=== PATIENT | female | born 1945 | race Caucasian/White ===

== ENCOUNTER 2016-12-31 12:35 | Outpatient (CLI) | payer MEDICARE, OTHER | END 2016-12-31 12:36 | disposition home or self-care (01) | DX: M43.12 Spondylolisthesis, cervical region (principal); M40.292 Other kyphosis, cervical region; M54.12 Radiculopathy, cervical region ==

== ENCOUNTER 2017-02-13 12:50 | Outpatient (CLI) | payer MEDICARE, OTHER | END 2017-02-13 12:51 | disposition home or self-care (01) | DX: M85.88 Other specified disorders of bone density and structure, other site (principal) ==

== ENCOUNTER 2017-02-13 12:51 | Outpatient (CLI) | payer MEDICARE, OTHER | END 2017-02-13 12:52 | disposition home or self-care (01) | DX: Z13.6 Encounter for screening for cardiovascular disorders (principal); I10 Essential (primary) hypertension; M85.88 Other specified disorders of bone density and structure, other site ==

== ENCOUNTER 2018-12-17 13:18 | Emergency (ER) | payer MEDICARE, OTHER ==
--- NOTE | 2018-12-17 14:41 | XRAY Report ---
Reason: cough Procedure Date: 12/17/2018 Accession Number: [id number] / [id number] Procedure: XR - Chest 2 View X-Ray CPT Code: 62497 FULL RESULT: EXAM: CHEST RADIOGRAPHY EXAM DATE: 12/17/2018 02:31 PM. CLINICAL HISTORY: Cough. Short of breath. COMPARISON: CHEST 2 VIEW PA/LAT 05/04/2016 12:29 PM. TECHNIQUE: 2 views. FINDINGS: Lungs/Pleura: Hyperexpanded with flattened diaphragm and coarse lung markings typical for COPD. Increased patchy density in right apex. No consolidation, effusion, or pneumothorax. Mediastinum: Heart and mediastinal contours are unremarkable. Upper lobe vessels not distended. Other: Scoliosis, degenerative changes. IMPRESSION: Right upper lobe infiltrate in a patient with underlying chronic lung disease. Follow-up is recommended to confirm complete resolution. [facility]
[2018-12-17] MEDS ORDERED: DOXYCYCLINE 100 MG TABLET PO STA (16:21)
[2018-12-17] MEDS ORDERED: IPRATROPIUM/ALBUTEROL 3 ML NEB INH STA (16:21)
[2018-12-17] MEDS ORDERED: SODIUM CHLORIDE 0.9% 1,000 ML IV ONE (16:21)
[2018-12-17] MEDS ORDERED: methylPREDNISolone SUCCINATE 125 MG/2 ML VIAL IVP STA (16:21)
--- NOTE | 2018-12-17 16:23 | ED Physician Documentation ---
PD HPI URI - Stated complaint Stated Complaint: CONGESTION/COUGH - Chief complaint Chief Complaint: Resp - History obtained from History obtained from: Patient - History of Present Illness Timing - onset: Other (This is a 73-year-old woman with history of COPD on 2 L of home oxygen per minute who presents with 10 days of increased shortness of breath, cough productive of green sputum. She denies fevers, runny nose or sore throat. She is also noted occasional dark blood in her stools. Her last colonoscopy was 9 years ago. She denies abdominal pain or significant constipation with this. She has not been eating as much as normal over the last 4 days and has poor appetite.) Review of Systems Constitutional: reports: Fatigue. denies: Fever, Chills Cardiac: denies: Chest pain / pressure, Palpitations Respiratory: reports: Dyspnea, Cough Skin: denies: Rash, Lesions, Abrasion (s) Musculoskeletal: denies: Neck pain, Back pain PD PAST MEDICAL HISTORY - Past Medical History Cardiovascular: Hypertension : Renal insuffiency - Past Surgical History Past Surgical History: No - Present Medications Home Medications: Ambulatory Orders Medication Instructions Recorded Confirmed Acetaminophen with Codeine 1 each PO DAILY 01/13/14 02/19/15 [Tylenol with Codeine #3 Tablet] Ascorbic Acid [Vitamin C] 500 mg PO DAILY 01/13/14 02/19/15 Aspirin EC [Ecotrin] 325 mg PO DAILY 01/13/14 02/19/15 Atorvastatin Calcium [Lipitor] 20 mg PO DAILY 01/13/14 02/19/15 Cholecalciferol (Vitamin D3) 1,000 unit PO DAILY 01/13/14 02/19/15 [Vitamin D] Citalopram [CeleXA] 20 mg PO DAILY 01/13/14 02/19/15 Cyanocobalamin (Vitamin B-12) 1,000 mcg PO Q7D 01/13/14 02/19/15 [Vitamin B-12] Flaxseed Oil 1,000 mg PO DAILY 01/13/14 02/19/15 Fluticasone [Flonase] 1 sprays MIO DAILY 01/13/14 02/19/15 Fluticasone/Salmeterol 100/50 1 puffs INH BID 01/13/14 02/19/15 [Advair 100 Mcg/50 Mcg] Gabapentin [Neurontin] 300 mg PO BID 01/13/14 02/19/15 Levalbuterol [Xopenex] 1.25 mg INH DAILY 01/13/14 02/19/15 Montelukast Sodium [Singulair] 10 mg PO DAILY 01/13/14 02/19/15 NIFEdipine [Procardia Xl] 30 mg PO DAILY 01/13/14 02/19/15 [place]-3/Dha/Epa/Fish Oil [Fish Oil] 1,000 mg PO DAILY 01/13/14 02/19/15 Cyanocobalamin (Vitamin B-12) 1,000 mcg PO DAILY 02/19/15 02/19/15 [Vitamin B-12] Fluticasone 44 Mcg [Flovent] 2 puffs INH BID 02/19/15 02/19/15 Iron Polysaccharide Complex 150 mg PO DAILY 02/19/15 02/19/15 [Polysaccharide Iron 150] Potassium Chloride 10 meq PO DAILY 02/19/15 02/19/15 Doxycycline Hyclate 100 mg PO BID #20 capsule 12/17/18 guaiFENesin/CODEINE [Robitussin AC] 5 - 10 ml PO Q6H PRN #120 ml 12/17/18 predniSONE [Deltasone] 20 mg PO [id number] #21 tab 12/17/18 - Allergies Allergies/Adverse Reactions: Allergies Allergy/AdvReac Type Severity Reaction Status Date / Time No Known Drug Allergies Allergy Unverified 12/17/18 13:48 - Social History Does the pt smoke?: No Smoking Status: Never smoker PD ED PE NORMAL - Vitals Vital signs reviewed: Yes - General General: Alert and oriented X 3, No acute distress - HEENT HEENT: PERRL, EOMI - Neck Neck: Supple, no meningeal sign, No bony TTP - Cardiac Cardiac: RRR, No murmur - Respiratory Respiratory: No respiratory distress, Other (Tight throughout with expiratory wheezing, speaking in full sentences though.) - Abdomen Abdomen: Soft, Non tender - Back Back: No CVA TTP, No spinal TTP - Derm Derm: Normal color, Warm and dry - Extremities Extremities: No edema, No calf tenderness / cord - Neuro Neuro: Alert and oriented X 3, Normal speech Results - Vitals Vitals: Vital Signs - 24 hr 12/17/18 12/17/18 12/17/18 13:44 16:20 16:39 Temperature 37.2 C Heart Rate 81 84 84 Respiratory 19 20 20 Rate Blood Pressure 132/74 H 140/119 H O2 Saturation 98 100 Oxygen O2 Source Nasal cannula Oxygen Flow Rate 2 - Labs Labs: Laboratory Tests 12/17/18 12/17/18 16:30 16:30 WBC 10.7 RBC 4.07 L Hgb 12.1 Hct 37.0 MCV 90.9 MCH 29.7 MCHC 32.7 RDW 13.6 Plt Count 366 MPV 9.9 Neut # (Auto) 7.5 H Lymph # (Auto) 1.9 [place] # (Auto) 1.3 H Eos # (Auto) 0.1 Baso # (Auto) 0.0 Absolute Nucleated RBC 0.00 Nucleated RBC % 0.0 Sodium 142 Potassium 3.2 L Chloride 98 L Carbon Dioxide 29 Anion Gap 15.0 H Glucose 115 H Calcium 9.4 - Rads (name of study) 2v chest Radiology: EMP read contemporaneously (RUL PNA superimposed on chronic lung dz) PD MEDICAL DECISION MAKING - ED course ED course: This is a 73-year-old woman with underlying COPD on oxygen who presents with right upper lobe pneumonia which is symptomatic. Her vital signs and exam are reassuring other than tight lungs for which she was administered a DuoNeb here. She also got doxycycline and steroids. Departure - Departure Disposition: 01 Home, Self Care Clinical Impression: Severe chronic obstructive pulmonary disease Pneumonia Qualifiers: Pneumonia type: due to unspecified organism Laterality: right Lung location: upper lobe of lung Qualified Code(s): J18.1 - Lobar pneumonia, unspecified organism Condition: Good Record reviewed to determine appropriate education?: Yes Instructions: COPD Dc, Pneumonia Dc Prescriptions: Doxycycline Hyclate 100 mg PO BID #20 capsule guaiFENesin/CODEINE [Robitussin AC] 5 - 10 ml PO Q6H PRN #120 ml PRN Reason: Cough predniSONE [Deltasone] 20 mg PO [id number] #21 tab Comments: Call your doctor to arrange a follow-up appointment, make the next available appointment. In the interim, return anytime if worse or if new symptoms develop. Repeat chest x-ray in several weeks, talk with your physician about this to make sure the pneumonia is all cleared up. Your blood pressure was elevated today on check into the emergency department. This does not mean that you have hypertension, it is a common phenomenon to come to the emergency department and have elevated blood pressure. I recommend that you see your primary care physician within the week to have it rechecked when you are feeling better.
[2018-12-17 16:51] LABS: BASOPHILS % (AUTO) 0.3 %; EOSINOPHILS # (AUTO) 0.1 10^3/uL (0.0-0.7); EOSINOPHILS % (AUTO) 0.5 %; HGB - HEMOGLOBIN 12.1 g/dL (12.0-16.0); LYMPHOCYTES # (AUTO) 1.9 10^3/uL (1.5-3.5); MEAN CORPUSCULAR HEMOGLOBIN 29.7 pg (27.0-31.0); MEAN CORPUSCULAR HGB CONC 32.7 g/dL (32.0-36.0); MEAN CORPUSCULAR VOLUME 90.9 fL (81.0-99.0); MEAN PLATELET VOLUME 9.9 fL (7.9-10.8); MONOCYTES # (AUTO) 1.3 10^3/uL (0.0-1.0); MONOCYTES % (AUTO) 11.8 %; NEUTROPHILS # (AUTO) 7.5 10^3/uL (1.5-6.6); NEUTROPHILS % (AUTO) 69.4 %; PLT - PLATELET COUNT 366 10^3/uL (130-450); RED BLOOD COUNT 4.07 10^6/uL (4.20-5.40); RED CELL DISTRIBUTION WIDTH 13.6 % (12.0-15.0); WHITE BLOOD COUNT 10.7 x10^3/uL (4.8-10.8)
[2018-12-17 16:54] LABS: CALCIUM 9.4 mg/dL (8.5-10.3)
[2018-12-17] MEDS ORDERED: POTASSIUM BICARB 25 MEQ TABLET PO STA (17:01)
[2018-12-17 17:27] VITALS: BP 145/129
[2018-12-17 18:46] LABS: ALBUMIN 3.7 g/dL (3.2-5.5); ALBUMIN/GLOBULIN RATIO 0.8 (1.0-2.2); BILIRUBIN,TOTAL 0.5 mg/dL (0.2-1.0); CREATININE 0.9 mg/dL (0.4-1.0); TOTAL PROTEIN 8.1 g/dL (6.7-8.2)
== END 2018-12-17 17:44 | disposition home or self-care (01) ==
LOC: ED 13:18
DX: J18.1 Lobar pneumonia, unspecified organism (principal); J44.9 Chronic obstructive pulmonary disease, unspecified; Z99.81 Dependence on supplemental oxygen; I10 Essential (primary) hypertension; Z79.82 Long term (current) use of aspirin
CPT/HCPCS: 36415; 71046; 80053; 83690; 85025; 94640; 96361; 96374; 99283; A9270

== ENCOUNTER 2019-04-09 15:08 | Observation (INO) | payer MEDICARE, OTHER ==
--- NOTE | 2019-04-09 15:21 | ED Physician Documentation ---
PD HPI FOCAL NEURO - Stated complaint Stated Complaint: UNSTEADY/WEAK - Chief complaint Chief Complaint: Neuro - History obtained from History obtained from: Patient, Family (daughter) - History of Present Illness Timing - onset: Yesterday (about 7 pm) Timing - duration: Days (1) Timing - details: Abrupt onset (The patient noted feeling unsteady and off balance when getting up from sitting last evening about 7 PM. Her daughter states she had to help the patient from falling over and she was unable to use even stand well on her own. She had a little bit of lightheadedness but not really changed mentation to suggest syncope or near syncope. It seemed to be a balance issue. The patient at baseline has some left-sided deficit from a prior stroke in 1994. However she normally is able to walk on her own and this was an abrupt new problem. The patient denies any visual disturbance over baseline. She did not have any headache. She has not had any vomiting or diarrhea. There was not any trouble speaking according to the daughter.), Still present Severity of deficit: Moderate Weakness: Face, Arm, Leg, Left (these are baseline for her from prior CVA.) Associated symptoms: Other (New symptom for her starting last evening was ataxia and falling over she was walking.) Contributing factors: negative: Anticoagulated, Atrial fibrillation Baseline status: positive: A&OX3, ambulatory, indep. negative: Dementia Similar symptoms before: Has not had sx before (She denies any prior episodes or problems with balance as she has last night into today.) Recently seen: Not recently seen Review of Systems Constitutional: denies: Fever Eyes: reports: Decreased vision (chronic). 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,arm,leg) Endocrine/Autoimmune: None GI: None : Renal insuffiency - Past Surgical History Past Surgical History: No - Present Medications Home Medications: Ambulatory Orders Medication Instructions Recorded Confirmed Acetaminophen with Codeine 1 each PO DAILY 01/13/14 02/19/15 [Tylenol with Codeine #3 Tablet] Ascorbic Acid [Vitamin C] 500 mg PO DAILY 01/13/14 02/19/15 Aspirin EC [Ecotrin] 325 mg PO DAILY 01/13/14 02/19/15 Atorvastatin Calcium [Lipitor] 20 mg PO DAILY 01/13/14 02/19/15 Cholecalciferol (Vitamin D3) 1,000 unit PO DAILY 01/13/14 02/19/15 [Vitamin D] Citalopram [CeleXA] 20 mg PO DAILY 01/13/14 02/19/15 Cyanocobalamin (Vitamin B-12) 1,000 mcg PO Q7D 01/13/14 02/19/15 [Vitamin B-12] Flaxseed Oil 1,000 mg PO DAILY 01/13/14 02/19/15 Fluticasone [Flonase] 1 sprays MIO DAILY 01/13/14 02/19/15 Fluticasone/Salmeterol 100/50 1 puffs INH BID 01/13/14 02/19/15 [Advair 100 Mcg/50 Mcg] Gabapentin [Neurontin] 300 mg PO BID 01/13/14 02/19/15 Levalbuterol [Xopenex] 1.25 mg INH DAILY 01/13/14 02/19/15 Montelukast Sodium [Singulair] 10 mg PO DAILY 01/13/14 02/19/15 NIFEdipine [Procardia Xl] 30 mg PO DAILY 01/13/14 02/19/15 [place]-3/Dha/Epa/Fish Oil [Fish Oil] 1,000 mg PO DAILY 01/13/14 02/19/15 Cyanocobalamin (Vitamin B-12) 1,000 mcg PO DAILY 02/19/15 02/19/15 [Vitamin B-12] Fluticasone 44 Mcg [Flovent] 2 puffs INH BID 02/19/15 02/19/15 Iron Polysaccharide Complex 150 mg PO DAILY 02/19/15 02/19/15 [Polysaccharide Iron 150] Potassium Chloride 10 meq PO DAILY 02/19/15 02/19/15 Doxycycline Hyclate 100 mg PO BID #20 capsule 12/17/18 guaiFENesin/CODEINE [Robitussin AC] 5 - 10 ml PO Q6H PRN #120 ml 12/17/18 predniSONE [Deltasone] 20 mg PO [id number] #21 tab 12/17/18 - Allergies Allergies/Adverse Reactions: Allergies Allergy/AdvReac Type Severity Reaction Status Date / Time No Known Drug Allergies Allergy Unverified 12/17/18 13:48 - Social History Does the pt smoke?: No Smoking Status: Never smoker Does the pt drink ETOH?: No Does the pt have substance abuse?: No PD ED PE NORMAL - Vitals Vital signs reviewed: Yes - General General: Alert and oriented X 3, No acute distress, Well developed/nourished - HEENT HEENT: EOMI (no noted nystagmus here), Moist mucous membranes, Pharynx benign - Neck Neck: Supple, no meningeal sign, No adenopathy, No bruit - Cardiac Cardiac: RRR, No murmur - Respiratory Respiratory: Clear bilaterally - Abdomen Abdomen: Soft, Non tender - Back Back: No CVA TTP - Derm Derm: Normal color, Warm and dry - Extremities Extremities: No edema, No calf tenderness / cord - Neuro Neuro: Alert and oriented X 3, Normal speech, Other (Left facial arm and leg moderate weakness which she states is baseline for her. She does have some trouble balancing with just standing at bedside. Seems off balance with few steps. Right hand use is coordinate. ) Eye Opening: Spontaneous Motor: Obeys Commands Verbal: Oriented GCS Score: 15 - Psych Psych: Normal mood NIHSS - Level of Consciousness Level of consciousness: (0) Alert, Keenly responsive LOC Questions: (0) Answers both Q's correct LOC Commands: (0) Performs both correctly - Gaze Best Gaze: (0) Normal - Visual Visual: (0) No loss - Facial Palsy Facial Palsy: (0) Normal, symmetrical movement - Motor Arms (both separate) Motor Arm (right): (0) No drift Motor Arm (left): (1) Drift - Motor Legs (both separate) Motor Leg (right): (0) No drift Motor Leg (left): (1) Drift - Limb Ataxia Limb Ataxia: (1) Present in 1 limb - Sensory Sensory: (0) Normal - Best Language Best Language: (0) No aphasia - Dysarthria Dysarthria: (0) Normal - Extinction and Inattention (formally neg Extinction and inattention: (0) No abnormality - Total Score/Results Total Score/Result: 3 Results - Vitals Vitals: Vital Signs - 24 hr 04/09/19 04/09/19 15:12 17:24 Temperature 36.5 C Heart Rate 93 101 H Respiratory 16 19 Rate Blood Pressure 144/67 H 135/86 H O2 Saturation 96 100 Oxygen O2 Source Nasal cannula - Labs Labs: Laboratory Tests 04/09/19 04/09/19 16:22 16:22 WBC 7.3 RBC 3.68 L Hgb 10.9 L Hct 36.1 L MCV 98.1 MCH 29.6 MCHC 30.2 L RDW 14.0 Plt Count 188 MPV 13.6 H Neut # (Auto) 5.3 Lymph # (Auto) 1.2 L [place] # (Auto) 0.7 Eos # (Auto) 0.2 Baso # (Auto) 0.0 Absolute Nucleated RBC 0.00 Nucleated RBC % 0.0 Manual Slide Review Indicated Platelet Estimate NORMAL (130-450,000) Platelet Morphology 1+ GIANT PLATELETS RBC Morph Micro Appear 1+ HYPOCHROMASIA Sodium 144 Potassium 3.9 Chloride 102 Carbon Dioxide 30 Anion Gap 12.0 BUN 18 Creatinine 0.6 Estimated GFR (MDRD) 97 Glucose 100 Calcium 9.9 Magnesium 1.7 Total Bilirubin 0.4 AST 21 ALT < 10 L Alkaline Phosphatase 42 Total Protein 6.8 Albumin 4.0 Globulin 2.8 Albumin/Globulin Ratio 1.4 Lipase 24 - Rads (name of study) head CT and CT-A Radiology: Prelim report reviewed, Discussed with rads (No signs of acute injury or bleeding or mass-effect. The CTA showed stable aneurysms comparable to prior imaging. MRI was suggested to exclude small cerebellar injury or infarcts.), See rad report PD MEDICAL DECISION MAKING - ED course Complexity details: considered differential (She has abrupt new ataxia and balance problems. These have decreased into today but are still persisting. She does not have positional vertigo or symptoms with head motion. There is no medications to obviously attribute the dizziness. She has not had alcohol. Her electrolytes are normal. I would still have a consideration for a posterior cerebrovascular cause for the acute ataxia. Her head CT is normal. In talking to the radiologist, he recommends MRI for evaluation of cerebellar injury if that is of concern.), d/w patient Departure - Departure Clinical Impression: Acute ataxia Condition: Stable Record reviewed to determine appropriate education?: Yes
[2019-04-09] MEDS ORDERED: SODIUM CHLORIDE 0.9% 1,000 ML IV ONE (15:56)
[2019-04-09] MEDS ORDERED: IOVERSOL 320 100 ML VIAL IVP ONE ×2 (16:14→17:06)
[2019-04-09 16:34] LABS: BASOPHILS % (AUTO) 0.4 %; EOSINOPHILS # (AUTO) 0.2 10^3/uL (0.0-0.7); PLT - PLATELET COUNT 188 10^3/uL (130-450)
[2019-04-09 16:38] LABS: HGB - HEMOGLOBIN 10.9 g/dL (12.0-16.0); LYMPHOCYTES # (AUTO) 1.2 10^3/uL (1.5-3.5); LYMPHOCYTES % (AUTO) 15.8 %; MEAN CORPUSCULAR HEMOGLOBIN 29.6 pg (27.0-31.0); MEAN CORPUSCULAR HGB CONC 30.2 g/dL (32.0-36.0); MEAN CORPUSCULAR VOLUME 98.1 fL (81.0-99.0); MEAN PLATELET VOLUME 13.6 fL (7.9-10.8); MONOCYTES # (AUTO) 0.7 10^3/uL (0.0-1.0); MONOCYTES % (AUTO) 9.3 %; NEUTROPHILS # (AUTO) 5.3 10^3/uL (1.5-6.6); NEUTROPHILS % (AUTO) 72.4 %; RED BLOOD COUNT 3.68 10^6/uL (4.20-5.40); WHITE BLOOD COUNT 7.3 x10^3/uL (4.8-10.8)
[2019-04-09 16:46] LABS: ALBUMIN/GLOBULIN RATIO 1.4 (1.0-2.2); ALKALINE PHOSPHATASE 42 IU/L (42-121); ALT ALANINE AMINOTRANSFERASE < 10 IU/L (10-60); AST ASPARTATE AMINOTRANSFERASE 21 IU/L (10-42); BILIRUBIN,TOTAL 0.4 mg/dL (0.2-1.0); BUN - BLOOD UREA NITROGEN 18 mg/dL (6-20); CALCIUM 9.9 mg/dL (8.5-10.3); CARBON DIOXIDE - CO2 30 mmol/L (21-32); CHLORIDE 102 mmol/L (101-111); CREATININE 0.6 mg/dL (0.4-1.0); GFR - MDRD 97 (>89); GLUCOSE 100 mg/dL (70-100); LIPASE 24 U/L (22-51); MAGNESIUM 1.7 mg/dL (1.7-2.8); SODIUM 144 mmol/L (135-145); TOTAL PROTEIN 6.8 g/dL (6.7-8.2)
[2019-04-09 17:27] LABS: PLATELET ESTIMATE, MANUAL NORMAL (130-450,000) (NORMAL); PLATELET MORPHOLOGY 1+ GIANT PLATELETS (NORMAL)
--- NOTE | 2019-04-09 17:44 | CT Report ---
Reason: onset ataxia last night Procedure Date: 04/09/2019 Accession Number: [id number] / [id number] Procedure: CT - ANGIO HEAD W CPT Code: FULL RESULT: EXAM: CT ANGIOGRAM HEAD. CT SCAN OF THE HEAD WITHOUT AND WITH CONTRAST. EXAM DATE: 04/09/2019 05:05 PM CLINICAL HISTORY: 74-year-old with acute onset ataxia on the evening of 04/08/2019. COMPARISON: MR brain 04/03/2015. TECHNIQUE: - CT Scan Head: Using a multidetector scanner, axial images were acquired from the foramen magnum to the skull vertex prior to and following contrast administration. - CT Angiogram: Using a multidetector scanner, high-resolution axial images were acquired from the skull base through vertex following rapid infusion of intravenous contrast. Reformats: Multiplanar MIP reformats were reconstructed. Nascet criteria used for stenosis measurement. IV Contrast: 80 cc Optiray 320. In accordance with CT protocol optimization, one or more of the following dose reduction techniques were utilized for this exam: automated exposure control, adjustment of mA and/or KV based on patient size, or use of iterative reconstructive technique. FINDINGS: NON-CONTRAST HEAD: Parenchyma: No acute parenchymal hemorrhage, mass, or midline shift. Moderate volume encephalomalacia and gliosis involving the right frontal lobe, posterior right frontal lobe, and right parietal lobe similar to MR brain 04/03/2015. There are additional mild bilateral areas of white matter hypoattenuation seen that appear similar to prior study. There is no convincing CT evidence of acute infarct. Extraaxial Spaces: Sulci and cisterns appear prominent but appropriate for the extent of volume loss. No subdural or epidural collections identified. Ventricles: Ex vacuo dilatation of the right lateral ventricle. Overall ventricular size and configuration appear appropriate for the extent of volume loss. No evidence of hydrocephalus. Sinuses and orbits: Imaged paranasal sinuses, orbits, and mastoids show no significant abnormality. Bones: No evidence of fracture or calvarial defect. Other: Vascular calcifications of the cavernous and petrous ICA segments. POST-CONTRAST HEAD: No abnormal enhancement. CT ANGIOGRAM HEAD: RIGHT: Internal Carotid artery: There is atherosclerotic plaque involving the petrous and cavernous ICA segments with less than 50% stenosis. There is a thrombosed medially projecting outpouching arising from the right supraclinoid ICA measuring 3.8 x 3.9 mm (series 6, image 83) concerning for a thrombosed aneurysm. There is a superiorly projecting outpouching arising from the right ICA terminus measuring 3.1 x 4.3 mm (series 6, image 9) concerning for potential aneurysm. Anterior Cerebral Artery: Patent without significant stenosis, aneurysm, or vascular malformation. Middle Cerebral Artery: Patent without significant stenosis, aneurysm, or vascular malformation. Posterior Cerebral Artery: The right [employer] is abnormally large with P3 segments extending all the way to the periphery. There is abnormal prominence of vessels within the sulci of the right occipital lobe within the calcarine fissure and inferior right parietal lobe (series 14, image 80). Posterior Communicating Artery: There is a laterally projecting outpouching arising from the proximal right posterior communicating artery measuring 5.1 x 5.3 mm (series 6, image 87) concerning for aneurysm. Vertebral Artery: Patent without significant stenosis. No evidence of dissection. LEFT: Internal Carotid artery: There is atherosclerotic plaque involving the cavernous ICA segment with no high-grade stenosis seen. Anterior Cerebral Artery: Patent without significant stenosis, aneurysm, or vascular malformation. Middle Cerebral Artery: Patent without significant stenosis, aneurysm, or vascular malformation. Posterior Cerebral Artery: Patent without significant stenosis, aneurysm, or vascular malformation. Posterior Communicating Artery: Patent. No aneurysm. Vertebral Artery: Patent without significant stenosis. No evidence of dissection. CENTRAL: Anterior Communicating Artery: Patent. No aneurysm. Basilar Artery: Patent without significant stenosis. No aneurysm. DURAL VENOUS SINUSES AND MAJOR CENTRAL VEINS: Patent. IMPRESSION: CT Head: 1. No definite acute infarct seen. If there is clinical concern for acute stroke or symptoms persist an MR brain could be considered to evaluate for small or subtle pathology. 2. No acute intracranial hemorrhage, mass, hydrocephalus, or midline shift. No abnormal postcontrast enhancement. 3. Moderate volume right MCA territory encephalomalacia and gliosis that appear similar to MR brain 04/03/2015. 4. Additional white matter changes seen that appear similar to prior study and may represent sequela of chronic small vessel ischemic disease. CTA Head: 1. No definite large vessel occlusion seen. 2. The right [employer] is abnormally large with prominent P3 segments extending to the periphery. Additionally, there is abnormal prominence of vessels within the sulci of the right occipital lobe within the calcarine fissure and inferior right parietal lobe (series 14, image 80). No definite AVM nidus seen. Finding is suspicious for potential vascular malformation or potential dural AV fistula. Consider diagnostic cerebral angiogram for further evaluation. 3. There is a thrombosed medially projecting outpouching arising from the right supraclinoid ICA measuring 3.8 x 3.9 mm (series 6, image 83) concerning for a thrombosed aneurysm. 4. There is a superiorly projecting outpouching arising from the right ICA terminus measuring 3.1 x 4.3 mm (series 6, image 9) concerning for potential aneurysm. 5. There is a laterally projecting outpouching arising from the proximal right posterior communicating artery measuring 5.1 x 5.3 mm (series 6, image 87) concerning for aneurysm. [facility] The call report notification system was initiated by Dr. Mart Pro at 05:42 PM on 04/09/2019. The above call report findings were discussed with Jose Ramon Bishop by Dr. Mart Pro at 05:46 PM on 04/09/2019.
[2019-04-09] MEDS ORDERED: SODIUM CHLORIDE FLUSH 0.9% 10 ML SYRINGE IVP PRN (18:23)
[2019-04-09] MEDS ORDERED: ONDANSETRON ODT 4 MG TABLET TL PRN (18:23)
[2019-04-09] MEDS ORDERED: ACETAMINOPHEN 325 MG TABLET PO PRN (18:23)
[2019-04-09] MEDS ORDERED: ONDANSETRON 4 MG/2 ML VIAL IVP PRN (18:23)
[2019-04-09] MEDS ORDERED: ASPIRIN 325 MG TABLET PO STA (18:27)
[2019-04-09] MEDS ORDERED: ATORVASTATIN 40 MG TABLET PO STA (18:27)
[2019-04-09] MEDS ORDERED: hydrALAZINE INJ 20 MG/ML VIAL IVP PRN (19:14)
[2019-04-09] MEDS: MECLIZINE 12.5 MG TABLET PO SCH (19:34)
[2019-04-09] MEDS: oxyCODONE 5 MG TABLET PO PRN (19:34)
--- NOTE | 2019-04-09 19:34 | HISTORY & PHYSICAL EXAMINATION ---
Chief Complaint - Chief Complaint Chief Complaint: Ataxia with associated Stroke/TIA/Neuro Template - Admitted From Admitted from: ED - History Obtained From Records Reviewed: RN notes reviewed, Old records reviewed History obtained from: Patient Exam limitations: No limitations - History of Present Illness HPI Comment/Other: This is a 74 y/o female with hx HTN, HLP, emphysema COPD-home 02 dependent, Vit b12 def, prior hx CKD-3, NC anemia, CVA in 1994 with saccular aneurysm per 04/03/15 MRI brain, p/w feeling unsteady and off balance when getting up from sitting last evening about 7 PM. Her daughter states she had to help the patient from falling over and she was unable to use even stand well on her own. She had a little bit of lightheadedness but not really changed mentation to suggest syncope or near syncope. It seemed to be a balance issue. The patient at baseline has some left-sided deficit from a prior stroke in 1994. However she normally is able to walk on her own and this was an abrupt new problem. The patient denies any visual disturbance over baseline. She did not have any headache. She has not had any vomiting or diarrhea. There was not any trouble speaking according to the daughter. Patient on multiple meds to include gabapentin, celexa, b12, MVI's, xoponex, singulair, advair diskus, procardia, ASA, lipitor. Her labs essential normal with some mild macrocytic anemia, mag borderline low at 1.7, CTA head showed what appears to be chronic microvascular ischemia with encephalomalacia but no acute ischemic insults. PMH/PSH - Past Medical History Cardiovascular: positive: Hypertension Respiratory: positive: Pneumonia, Shortness of breath Neuro: positive: CVA (1994 with left sided deficit of face,arm,leg) Endocrine/Autoimmune: positive: None GI: positive: None : positive: Renal insuffiency MRSA Hx?: No Social & Family Hx - Social History Does the pt smoke?: No Smoking Status: Never smoker Does the pt drink ETOH?: No Does the pt have substance abuse?: No Meds/Allgy - Home Medications Home Medications: Ambulatory Orders Medication Instructions Recorded Confirmed Acetaminophen with Codeine 1 each PO DAILY 01/13/14 02/19/15 [Tylenol with Codeine #3 Tablet] Ascorbic Acid [Vitamin C] 500 mg PO DAILY 01/13/14 02/19/15 Aspirin EC [Ecotrin] 325 mg PO DAILY 01/13/14 02/19/15 Atorvastatin Calcium [Lipitor] 20 mg PO DAILY 01/13/14 02/19/15 Cholecalciferol (Vitamin D3) 1,000 unit PO DAILY 01/13/14 02/19/15 [Vitamin D] Citalopram [CeleXA] 20 mg PO DAILY 01/13/14 02/19/15 Cyanocobalamin (Vitamin B-12) 1,000 mcg PO Q7D 01/13/14 02/19/15 [Vitamin B-12] Flaxseed Oil 1,000 mg PO DAILY 01/13/14 02/19/15 Fluticasone [Flonase] 1 sprays MIO DAILY 01/13/14 02/19/15 Fluticasone/Salmeterol 100/50 1 puffs INH BID 01/13/14 02/19/15 [Advair 100 Mcg/50 Mcg] Gabapentin [Neurontin] 300 mg PO BID 01/13/14 02/19/15 Levalbuterol [Xopenex] 1.25 mg INH DAILY 01/13/14 02/19/15 Montelukast Sodium [Singulair] 10 mg PO DAILY 01/13/14 02/19/15 NIFEdipine [Procardia Xl] 30 mg PO DAILY 01/13/14 02/19/15 [place]-3/Dha/Epa/Fish Oil [Fish Oil] 1,000 mg PO DAILY 01/13/14 02/19/15 Cyanocobalamin (Vitamin B-12) 1,000 mcg PO DAILY 02/19/15 02/19/15 [Vitamin B-12] Fluticasone 44 Mcg [Flovent] 2 puffs INH BID 02/19/15 02/19/15 Iron Polysaccharide Complex 150 mg PO DAILY 02/19/15 02/19/15 [Polysaccharide Iron 150] Potassium Chloride 10 meq PO DAILY 02/19/15 02/19/15 Doxycycline Hyclate 100 mg PO BID #20 capsule 12/17/18 guaiFENesin/CODEINE [Robitussin AC] 5 - 10 ml PO Q6H PRN #120 ml 12/17/18 predniSONE [Deltasone] 20 mg PO [id number] #21 tab 12/17/18 - Allergies Allergies/Adverse Reactions: Allergies Allergy/AdvReac Type Severity Reaction Status Date / Time No Known Drug Allergies Allergy Unverified 12/17/18 13:48 Review of Systems - All Other Systems All Other Systems: reports: Reviewed and negative Prior Level of Functionality: Patient with good FC and adequate ADL's Exam - Vital Signs Reviewed Vital Signs: Yes Vital Signs: Vital Signs x48h Temp Pulse Pulse Resp BP BP Pulse Ox 04/09/19 19:16 36.6 C 97 20 154/80 H 100 04/09/19 18:50 98 20 151/86 H 100 04/09/19 17:24 101 H 19 135/86 H 100 04/09/19 15:12 36.5 C 93 16 144/67 H 96 - Physical Exam General Appearance: positive: No acute distress, Alert, Anxious Eyes Bilateral: positive: Normal inspection, PERRL, EOMI ENT: positive: ENT inspection nml, Pharynx nml, No signs of dehydration Neck: positive: Nml inspection, Thyroid nml, No JVD, Trachea midline. negative: Thyromegaly Respiratory: positive: Chest non-tender, No respiratory distress, Breath sounds nml Cardiovascular: positive: Regular rate & rhythm, No murmur, No gallop Peripheral Pulses: positive: 2+ Abdomen: positive: Non-tender, No organomegaly, Nml bowel sounds, No distention Skin: positive: Color nml, No rash, Warm Extremities: positive: Non-tender, Full ROM. negative: Pedal edema Neurologic/Psychiatric: positive: Oriented x3, CN's nml (2-12), Motor nml, Sensation nml, Mood/affect nml, Other (Mild tremors on movements to upper extremities.). negative: Facial droop, Slurred/abnml speech, Depressed mood/affect Reflexes: Knee (R): 4+, Knee (L): 4+, Ankle (R): 4+, Ankle (L): 4+ Comments/Other: Hyperreflexia seen on DTR's Results - Lab Results Lab results reviewed: Yes Fish Bones: 04/09/19 16:22 04/09/19 16:22 Other Lab Results: Lab Results x24hrs 04/09/19 04/09/19 Range/Units 16:22 16:22 WBC 7.3 (4.8-10.8) x10^3/uL RBC 3.68 L (4.20-5.40) 10^6/uL Hgb 10.9 L (12.0-16.0) g/dL Hct 36.1 L (37.0-47.0) % MCV 98.1 (81.0-99.0) fL MCH 29.6 (27.0-31.0) pg MCHC 30.2 L (32.0-36.0) g/dL RDW 14.0 (12.0-15.0) % Plt Count 188 (130-450) 10^3/uL MPV 13.6 H (7.9-10.8) fL Neut # (Auto) 5.3 (1.5-6.6) 10^3/uL Lymph # (Auto) 1.2 L (1.5-3.5) 10^3/uL [place] # (Auto) 0.7 (0.0-1.0) 10^3/uL Eos # (Auto) 0.2 (0.0-0.7) 10^3/uL Baso # (Auto) 0.0 (0.0-0.1) 10^3/uL Absolute Nucleated RBC 0.00 x10^3/uL Nucleated RBC % 0.0 /100WBC Manual Slide Review Indicated Platelet Estimate NORMAL (130-450,000) (NORMAL) Platelet Morphology 1+ GIANT PLATELETS (NORMAL) RBC Morph Micro Appear 1+ HYPOCHROMASIA (NORMAL) Sodium 144 (135-145) mmol/L Potassium 3.9 (3.5-5.0) mmol/L Chloride 102 (101-111) mmol/L Carbon Dioxide 30 (21-32) mmol/L Anion Gap 12.0 (6-13) BUN 18 (6-20) mg/dL Creatinine 0.6 (0.4-1.0) mg/dL Estimated GFR (MDRD) 97 (>89) Glucose 100 (70-100) mg/dL Calcium 9.9 (8.5-10.3) mg/dL Magnesium 1.7 (1.7-2.8) mg/dL Total Bilirubin 0.4 (0.2-1.0) mg/dL AST 21 (10-42) IU/L ALT < 10 L (10-60) IU/L Alkaline Phosphatase 42 (42-121) IU/L Total Protein 6.8 (6.7-8.2) g/dL Albumin 4.0 (3.2-5.5) g/dL Globulin 2.8 (2.1-4.2) g/dL Albumin/Globulin Ratio 1.4 (1.0-2.2) Lipase 24 (22-51) U/L - Diagnostic Imaging Results Diagnostic Imaging Results: positive: Final report reviewed - EKG Results EKG Interpreted Independently: Yes EKG Comparison: positive: Old EKG unavailable Impression/Plan - Problem List Problem List: 1. Acute new onset cerebellar ataxia 2. 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 COPD without exacerbation 4. HTN 5. Hyperlipidemia 6. Macrocytic anemia 7. Chronic pain syndrome 8. Hx CVA 9. 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 Hx Vertigo 11. Advanced care planning, education and counseling Plan: Admit to tele, Tele neurology consulted, 23 obs advised, neurochecks per protocol with BP monitoring and IV hydralazine for HTN excursions. Patients CT head does not show acute infarcts. CTA head shows prior aneurysms in the right ICA terminus yadira 3.1 x 4.3 mm. A previously seen saccular aneurysm yadira 5.1x5.3 mm. In addition, suspicious potential vascular malformation or potential dural AV fistula. Also a medially thrombosed projecting outpaouching arising from the right supraclinoid ICA yadira 3.8x3.9 mm. A total of 3 aneurysms with 1 being thrombosed. I spoke to Dr. Crews neurology from [facility] and a follow up with neurosurgery if symptoms persist or worsen. Would obtain MRI/MRA to further evaluate this although suggested cerebral angiogram in the setting of prior CVA in 1994, continue with med mgmt with ASA and statin. Would query on new onset ataxia in the setting of gabapentin and celexa as she suffers from chronic pain. Neuroimaging to follow with MRI brain, MRA H/N. Obtain labs for TSH, b12, FA, appears that she may be macrocytic anemia related to these nutritional deficiencies. Obtain Gabapentin level. Meclizine 12.5 mg po q6. PT/OT ordered. Patient has chest tightness attributable to her COPD w/o wheezing or exacerbatio ns, would place back on singulair, and duonebs. EKG shows no ischemic changes or ST-T wave abnormalities. Patient had discussion on her medical conditions and understands her conditions well in terms of trajectory of illness and have discussed goals of care with her FULL code status. DVT/GI ppx initiated Code status: FULL Core Measures - Anticipated LOS I expect patient to be DC'd or transferred within 96 hours.: Yes - Issues Hospital Issues and Management Plan: Patient to be admitted for 23 obs, neurochecks, med mgmt, neuro imaging to follow. - DVT/VTE - Prophylaxis VTE/DVT Device ordered at admit?: Yes VTE/DVT Prophylaxis med ordered at admit?: No Not Ordered - Medical Reason: Not indicated - Stroke - Rehab Assessment Rehab services assessment to be ordered?: Yes - AMI - Statin at Admit Aspirin Prescribed on Admit: Yes
[2019-04-09] MEDS ORDERED: IPRATROPIUM/ALBUTEROL 3 ML NEB INH PRN (20:10)
[2019-04-09] MEDS ORDERED: MONTELUKAST 10 MG TABLET PO SCH (21:00)
[2019-04-09] MEDS: GABAPENTIN 300 MG CAPSULE PO SCH (21:44)
[2019-04-10 05:54] LABS: BASOPHILS % (AUTO) 0.6 %; EOSINOPHILS # (AUTO) 0.2 10^3/uL (0.0-0.7); EOSINOPHILS % (AUTO) 3.8 %; HGB - HEMOGLOBIN 9.4 g/dL (12.0-16.0); LYMPHOCYTES # (AUTO) 1.6 10^3/uL (1.5-3.5); LYMPHOCYTES % (AUTO) 32.1 %; MEAN CORPUSCULAR HEMOGLOBIN 29.6 pg (27.0-31.0); MEAN CORPUSCULAR HGB CONC 30.4 g/dL (32.0-36.0); MEAN CORPUSCULAR VOLUME 97.2 fL (81.0-99.0); MEAN PLATELET VOLUME 13.3 fL (7.9-10.8); MONOCYTES # (AUTO) 0.6 10^3/uL (0.0-1.0); MONOCYTES % (AUTO) 11.4 %; NEUTROPHILS # (AUTO) 2.6 10^3/uL (1.5-6.6); NEUTROPHILS % (AUTO) 51.9 %; PLT - PLATELET COUNT 150 10^3/uL (130-450); RED BLOOD COUNT 3.18 10^6/uL (4.20-5.40)
[2019-04-10 06:07] LABS: CHOLESTEROL 121 mg/dL; HDL CHOLESTEROL 61 mg/dL; LDL CHOLESTEROL,CALCULATED 49 mg/dL; LDL/HDL RATIO 0.8 (<4.4); VLDL CHOLESTEROL 11 mg/dL
[2019-04-10] MEDS: MECLIZINE 12.5 MG TABLET PO SCH ×2 (06:40→11:55)
[2019-04-10] MEDS: SODIUM CHLORIDE FLUSH 0.9% 10 ML SYRINGE IVP SCH ×2 (06:40→08:53)
[2019-04-10 06:48] LABS: THYROID STIMULATING HORMONE 6.23 uIU/mL (0.34-5.60)
[2019-04-10 06:59] LABS: FOLATE 11.96 ng/mL (5.90 - >24.8)
[2019-04-10 07:03] LABS: PLATELET MORPHOLOGY 1+ LARGE PLATELETS (NORMAL); RBC MORPHOLOGY (MULTIPLE) NORMAL APPEARANCE (NORMAL)
[2019-04-10 07:04] LABS: PLATELET ESTIMATE, MANUAL NORMAL (130-450,000) (NORMAL)
[2019-04-10] MEDS: LEVALBUTEROL 1.25 MG/3 ML NEB INH PRN ×2 (08:04→14:00)
[2019-04-10] MEDS: oxyCODONE 5 MG TABLET PO PRN (08:51)
[2019-04-10] MEDS: GABAPENTIN 300 MG CAPSULE PO SCH (08:52)
[2019-04-10] MEDS ORDERED: ASPIRIN EC 325 MG TABLET PO SCH (09:00)
[2019-04-10] MEDS ORDERED: ATORVASTATIN 40 MG TABLET PO SCH (09:00)
[2019-04-10] MEDS ORDERED: NIFEdipine ER 30 MG TABLET PO SCH (09:00)
[2019-04-10] MEDS ORDERED: CITALOPRAM 10 MG TABLET PO SCH (09:00)
[2019-04-10] MEDS ORDERED: POLYETHYLENE GLYCOL 3350 17 GM PACKET PO SCH (09:00)
--- NOTE | 2019-04-10 09:14 | ADVANCE CARE PLANNING NOTE ---
Advance Care Planning - Date/Time Date: 04/10/19 Time: 10:00 - Purpose of encounter Text: To discuss goals of care as they pertain to patient's personal beliefs and values and their relevance to current medical conditions, trajectory of illness, and provider burden. - Parties in attendance Parties in attendance: Patient was in attendance with no other family members present at bedside - Decisional capacity Decisional capacity of: patient has good decisional-making capacity - Subjective/Patient's story Subjective/Patient's story: Patient mentions that she is usually active and has bouts of these dizzy spells but never had it this badly and mentions that she would like to get to the bottom of it and is hopeful of resolution of her symptoms. Patient states she would like to have medical treatment and would consider invasive vascular procedure if needed for her aneurysms. 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 Her daughter states she had to help the patient from falling over and she was unable to use even stand well on her own. She had a little bit of lightheadedness but not really changed mentation to suggest syncope or near syncope. It seemed to be a balance issue. The patient at baseline has some left-sided deficit from a prior stroke in 1994. However she normally is able to walk on her own and this was an abrupt new problem. The patient denies any visual disturbance over baseline. She did not have any headache. She has not had any vomiting or diarrhea. There was not any trouble speaking according to the daughter. Patient on multiple meds to include gabapentin, celexa, b12, MVI's, xoponex, singulair, advair diskus, procardia, ASA, lipitor. Her labs essential normal with some mild macrocytic anemia, mag borderline low at 1.7, CTA head showed what appears to be chronic microvascular ischemia with encephalomalacia but no acute ischemic insults. - Goals of Care Goals of care determinations: Gols of care determination to be assessed further if aggressive interventional radiology is needed for possible embolization of other 2 non-thrombosed aneurysms. Neuroimaging is pending to further assess anatomy and extent of aneurysms with underlying dissection if detected, would need a vascular surgery to make further recs. Patient has elected for medical management for now and would be amendable to have interventional options to correct or prevent any intracranial or vascular complications to include hemorrhagic CVA and or ICH. - Plan Plan: To continue with medical mgmt as deemed necessary by patient's understanding of her medical conditions , trajectory of illness, provider burden and her understanding of her current vascular issues that may need urgent interventions. - Code Status Code Status: Attempt Resuscitation - Time Spent on Advance Care Planning Time spent on advance care plannin minutes - Other Other comments: Consider Palliative care consultation
[2019-04-10] MEDS ORDERED: BUDESONIDE 0.5 MG/2 ML NEB INH SCH (11:00)
[2019-04-10] MEDS ORDERED: FORMOTEROL FUMARATE NEB 20 MCG/2 ML INH SCH (11:00)
[2019-04-10 13:39] VITALS: BP 103/56
[2019-04-10] MEDS ORDERED: GABAPENTIN 300 MG CAPSULE PO SCH (14:00)
--- NOTE | 2019-04-10 14:32 | MRI Report ---
Reason: acute cerebellar ataxia Procedure Date: 04/10/2019 Accession Number: [id number] / [id number] Procedure: MRI - Brain W/O CPT Code: FULL RESULT: EXAMS: MRI BRAIN WITHOUT CONTRAST. MRA BRAIN WITHOUT CONTRAST. EXAM DATE: 04/10/2019 01:51 PM. CLINICAL HISTORY: 74-year-old with history of aneurysms presenting with new onset ataxia. Evaluate for intracranial pathology. COMPARISON: CTA head and neck 04/10/2019; MR brain 04/03/2015, MRA head 04/03/2015. TECHNIQUE: MRI: Multiplanar, multisequence T1-weighted and fluid-sensitive MRI sequences of the brain were performed. Sequences optimized for routine evaluation. Other: None. Post-processing: None. IV Contrast: None. MRA: Multiplanar, multisequence T1-weighted and fluid-sensitive MRA sequences of the brain were performed. Other: None. Post-processing: Multiplanar 3D MIP reconstructions. IV Contrast: None. FINDINGS: MRI: Parenchyma/Dura: No acute parenchymal hemorrhage, mass, or midline shift. There is moderate volume encephalomalacia and gliosis involving the right frontal lobe, posterior right frontal lobe and right parietal lobe similar to MR brain 04/03/2015. Old chronic lacunar infarct of the right centrum semiovale seen. There are additional mild to moderate bilateral areas of T2/FLAIR signal hyperintensity seen that appear similar to prior study. There are punctate foci of DWI signal hyperintensity seen involving the left brachium pontis measuring up to 2 mm (series 605, image 40) and dorsal left parag measuring up to 2 mm (series 605, image 48). These regions demonstrate associated ADC signal hypointensity (series 603, image 36 and 44). There are no definite areas of abnormal parenchymal hemosiderin deposition seen. Ventricles/Cisterns: Prominence of the lateral ventricles and third ventricle that appear appropriate for the extent of volume loss. No abnormal extra-axial fluid collection or hemorrhage. Orbits: Symmetric and unremarkable. Sella [place]: The pituitary gland, cavernous sinuses, suprasellar cistern and optic chiasm are unremarkable. IAC: Symmetric and unremarkable. Vasculature: Normal signal flow void is seen in the major arterial structures at the skull base. Sinuses: No acute appearing sinus disease. Bones: No focal pathologic appearing marrow signal changes. Other: None. MRA: RIGHT Internal Carotid (ICA): Previously seen thrombosed medially projecting outpouching arising from the right supraclinoid ICA seen on CTA 04/09/2019 is not fully evaluated on the current study. There is a superiorly projecting outpouching arising from the right ICA terminus measuring approximately 2.5 x 3.2 mm (series 401, image 118) better evaluated on prior CTA 03/20/2019. Middle Cerebral (MCA): Hypoplastic compared to the left but similar in caliber and size to MRA 04/03/2015. Anterior Cerebral (ADORE): Atretic absent A1 segment with A2 segment seen likely due to flow through an anterior communicating artery. Distal ADORE branches are hypoplastic compared to the left. Overall appearance is similar to MRA 04/03/2015. Posterior Cerebral (TOLL REPAIRER CENTRAL OFFICE): The right TOLL REPA[employer] CENTRAL OFFICE is abnormally large with P3 segments extending all the way to the periphery. This is better evaluated on CTA 04/09/2019. Posterior Communicating (P-COM): There is a laterally projecting outpouching arising from the proximal right posterior communicating artery measuring 5.1 x 5.3 mm (series 401, image 103) concerning for aneurysm. Vertebral: No aneurysm, stenosis or anomaly in the visualized upper vertebral artery. LEFT Internal Carotid (ICA): No aneurysm, stenosis or anomaly. Middle Cerebral (MCA): No aneurysm, stenosis or anomaly. Anterior Cerebral (ADORE): No aneurysm, stenosis or anomaly. Posterior Cerebral (TO[employer] CENTRAL OFFICE): No aneurysm, stenosis or anomaly. Posterior Communicating (P-COM): No aneurysm, stenosis or anomaly. Vertebral: No aneurysm, stenosis or anomaly in the visualized upper vertebral artery. MIDLINE Anterior Communicating (A-COM): No aneurysm, stenosis or anomaly. Basilar artery: No aneurysm, stenosis or anomaly. Other: None. IMPRESSION: MRI HEAD: 1.There are 2 questionable foci of restricted diffusion involving the left brachium pontis and dorsal left parag that may represent acute infarcts. 2. No acute intracranial hemorrhage, mass, hydrocephalus, or midline shift. 3. Moderate volume right MCA territory encephalomalacia and gliosis that appear similar to MR brain 04/03/2015. 4. Old chronic lacunar infarct at the right centrum semiovale. 5. Additional white matter changes seen that appear similar to prior study and may represent sequela of chronic small vessel ischemic disease. MRA HEAD: 1.The previously seen thrombosed medially projecting outpouching arising from the right supraclinoid ICA is not well evaluated on the current study and is better evaluated on CTA 04/09/2019. 2. There is a superiorly projecting outpouching arising from the right ICA terminus that is better evaluated on CTA 04/09/2019 concerning for aneurysm. 3. There is a laterally projecting outpouching arising from the proximal right posterior communicating artery, as detailed above, that appears similar to CTA 04/09/2019 concerning for aneurysm. 4. The right MCA and right ADORE are smaller in caliber compared to left. The appearance is similar to MRA 04/03/2015. 5. The right TOLL [employer]TRAL [employer] is abnormally large with P3 segments extending all the way to the periphery. This is better evaluated on CT a 04/09/2019. MARVINA The call report notification system was initiated by Dr. Mart Pro at 02:30 PM on 04/10/2019. The above call report findings were discussed with Rahel Hughes by Dr. Mart Pro at 02:37 PM on 04/10/2019.
--- NOTE | 2019-04-10 14:32 | MRI Report ---
Reason: New onset ataxia with prior hx aneurysms Procedure Date: 04/10/2019 Accession Number: [id number] / [id number] Procedure: MRI - Angio Brain W/O (MRA) CPT Code: FULL RESULT: EXAMS: MRI BRAIN WITHOUT CONTRAST. MRA BRAIN WITHOUT CONTRAST. EXAM DATE: 04/10/2019 01:51 PM. CLINICAL HISTORY: 74-year-old with history of aneurysms presenting with new onset ataxia. Evaluate for intracranial pathology. COMPARISON: CTA head and neck 04/10/2019; MR brain 04/03/2015, MRA head 04/03/2015. TECHNIQUE: MRI: Multiplanar, multisequence T1-weighted and fluid-sensitive MRI sequences of the brain were performed. Sequences optimized for routine evaluation. Other: None. Post-processing: None. IV Contrast: None. MRA: Multiplanar, multisequence T1-weighted and fluid-sensitive MRA sequences of the brain were performed. Other: None. Post-processing: Multiplanar 3D MIP reconstructions. IV Contrast: None. FINDINGS: MRI: Parenchyma/Dura: No acute parenchymal hemorrhage, mass, or midline shift. There is moderate volume encephalomalacia and gliosis involving the right frontal lobe, posterior right frontal lobe and right parietal lobe similar to MR brain 04/03/2015. Old chronic lacunar infarct of the right centrum semiovale seen. There are additional mild to moderate bilateral areas of T2/FLAIR signal hyperintensity seen that appear similar to prior study. There are punctate foci of DWI signal hyperintensity seen involving the left brachium pontis measuring up to 2 mm (series 605, image 40) and dorsal left parag measuring up to 2 mm (series 605, image 48). These regions demonstrate associated ADC signal hypointensity (series 603, image 36 and 44). There are no definite areas of abnormal parenchymal hemosiderin deposition seen. Ventricles/Cisterns: Prominence of the lateral ventricles and third ventricle that appear appropriate for the extent of volume loss. No abnormal extra-axial fluid collection or hemorrhage. Orbits: Symmetric and unremarkable. Sella Turcica: The pituitary gland, cavernous sinuses, suprasellar cistern and optic chiasm are unremarkable. IAC: Symmetric and unremarkable. Vasculature: Normal signal flow void is seen in the major arterial structures at the skull base. Sinuses: No acute appearing sinus disease. Bones: No focal pathologic appearing marrow signal changes. Other: None. MRA: RIGHT Internal Carotid (ICA): Previously seen thrombosed medially projecting outpouching arising from the right supraclinoid ICA seen on CTA 04/09/2019 is not fully evaluated on the current study. There is a superiorly projecting outpouching arising from the right ICA terminus measuring approximately 2.5 x 3.2 mm (series 401, image 118) better evaluated on prior CTA 03/20/2019. Middle Cerebral (MCA): Hypoplastic compared to the left but similar in caliber and size to MRA 04/03/2015. Anterior Cerebral (ADORE): Atretic absent A1 segment with A2 segment seen likely due to flow through an anterior communicating artery. Distal ADORE branches are hypoplastic compared to the left. Overall appearance is similar to MRA 04/03/2015. Posterior Cerebral ([employer]ERSON[employer]ES INSURANCE AGENT): The right PERSON[employer] INSURANCE AGENT is abnormally large with P3 segments extending all the way to the periphery. This is better evaluated on CTA 04/09/2019. Posterior Communicating (P-COM): There is a laterally projecting outpouching arising from the proximal right posterior communicating artery measuring 5.1 x 5.3 mm (series 401, image 103) concerning for aneurysm. Vertebral: No aneurysm, stenosis or anomaly in the visualized upper vertebral artery. LEFT Internal Carotid (ICA): No aneurysm, stenosis or anomaly. Middle Cerebral (MCA): No aneurysm, stenosis or anomaly. Anterior Cerebral (ADORE): No aneurysm, stenosis or anomaly. Posterior Cerebral (PERSON[employer]ES INSURANCE AGENT): No aneurysm, stenosis or anomaly. Posterior Communicating (P-COM): No aneurysm, stenosis or anomaly. Vertebral: No aneurysm, stenosis or anomaly in the visualized upper vertebral artery. MIDLINE Anterior Communicating (A-COM): No aneurysm, stenosis or anomaly. Basilar artery: No aneurysm, stenosis or anomaly. Other: None. IMPRESSION: MRI HEAD: 1.There are 2 questionable foci of restricted diffusion involving the left brachium pontis and dorsal left parag that may represent acute infarcts. 2. No acute intracranial hemorrhage, mass, hydrocephalus, or midline shift. 3. Moderate volume right MCA territory encephalomalacia and gliosis that appear similar to MR brain 04/03/2015. 4. Old chronic lacunar infarct at the right centrum semiovale. 5. Additional white matter changes seen that appear similar to prior study and may represent sequela of chronic small vessel ischemic disease. MRA HEAD: 1.The previously seen thrombosed medially projecting outpouching arising from the right supraclinoid ICA is not well evaluated on the current study and is better evaluated on CTA 04/09/2019. 2. There is a superiorly projecting outpouching arising from the right ICA terminus that is better evaluated on CTA 04/09/2019 concerning for aneurysm. 3. There is a laterally projecting outpouching arising from the proximal right posterior communicating artery, as detailed above, that appears similar to CTA 04/09/2019 concerning for aneurysm. 4. The right MCA and right ADORE are smaller in caliber compared to left. The appearance is similar to MRA 04/03/2015. 5. The right [employer] INS[employer]ENT is abnormally large with P3 segments extending all the way to the periphery. This is better evaluated on CT a 04/09/2019. MARVINA The call report notification system was initiated by Dr. Mart Pro at 02:30 PM on 04/10/2019. The above call report findings were discussed with Rahel Hughes by Dr. Mart Pro at 02:37 PM on 04/10/2019.
--- NOTE | 2019-04-10 14:36 | MRI Report ---
Reason: New onset ataxia with prior hx aneurysms Procedure Date: 04/10/2019 Accession Number: [id number] / [id number] Procedure: MRI - Angio Neck W/O (MRA) CPT Code: FULL RESULT: EXAM: MR ANGIOGRAM NECK EXAM DATE: 04/10/2019 01:54 PM. CLINICAL HISTORY: 74-year-old with history of intracranial aneurysms presenting with new onset ataxia. Evaluate for vascular pathology. COMPARISON: CTA head 04/09/2019; MRA neck 04/03/2019. TECHNIQUE: 2D and 3D [id number] sequences of the neck were obtained without contrast. Axial T1 fat-sat turbospin echo sequence of the neck was obtained. Other: 3D reformats of the vasculature is performed at an independent workstation. IV Contrast: None. Evaluation of arterial stenosis is based on a NASCET method of measurement. FINDINGS: Motion artifact technically limits evaluation. RIGHT Common Carotid: Patent. No dissection or significant stenosis. Internal Carotid: Patent. No dissection or significant stenosis. External Carotid: Patent. No dissection or significant stenosis. Vertebral: Patent. No dissection or significant stenosis. LEFT Common Carotid: Patent. No dissection or significant stenosis. Internal Carotid: Patent. No dissection or significant stenosis. External Carotid: Patent. No dissection or significant stenosis. Vertebral: Patent. No dissection or significant stenosis. Intracranial Circulation: Please refer to separately dictated MRA head 04/10/2019 for description of intracranial findings. Other: The soft tissues, bones, and lung apices are unremarkable. IMPRESSION: 1. The vasculature of the neck appears patent with no definite high-grade stenosis or dissection seen. RADIA
--- NOTE | 2019-04-10 15:07 | Discharge Plan ---
Discharge Plan Problem Reviewed?: Yes Disposition: Home, Self Care Condition: Poor Prescriptions: Atorvastatin Calcium [Lipitor] 40 mg PO DAILY #10 tablet Diet: Regular Activity Restrictions: Activity as Tolerated Shower Restrictions: No (fall precaution) Instruction Topics: Atorvastatin tablets, Stroke Sx, Aneurysm Brain, Aneurysm Brain Types Health Concerns: brain aneurysm and stroke Plan of Treatment: There are two questionable foci which may represent acute infarcts and there are three loci in brain concerning for aneurysm. Increase your home Lipitor and continue your home Aspirin dosage, and followup neurovascular surgeon as out-pt per [place] neurologist recommendation. Care Goals: stablization of your medical condition Assessment: you do not present acute fecal neurological deficit now, please followup neurovascular surgeon as out-pt for further evaluation Additional Instructions or Follow Up instructions: you may followup your PCP in one week and neurovascular surgeon as out-pt for further evaluation. Should your symptoms return or worsen, you may present ER, call 911 or your PCP for help Follow-Up Care: Outpatient Rehab - PT No Smoking: If you smoke, Please STOP! Call for help. Follow-up with: Maisha Ramirez MD [Primary Care Provider] -
--- NOTE | 2019-04-10 15:24 | DISCHARGE SUMMARY ---
Discharge Summary Discharge Date: 04/10/19 Discharging Provider: DUMONT Primary Care Provider: Dr. Ramirez Condition at Discharge: Poor Discharge Disposition: Home, Self Care Discharge Facility Name: home - DIAGNOSES Admission Diagnoses: 1. Acute new onset cerebellar ataxia 2. 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 COPD without exacerbation 4. HTN 5. Hyperlipidemia 6. Macrocytic anemia 7. Chronic pain syndrome 8. Hx CVA 9. 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 Hx Vertigo Discharge Diagnoses with Status of Each Condition: 1. Acute new onset cerebellar ataxia resolved. pt state she did not have ataxia any more, pt's family also confirm pt's ataxia was resolved. pt denies any other acute focus neurological deficits. PT evaluated and treated pt as improved, and recommend pt can be d/c to home pt refused to have home health PT/OT 2. 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 consulted with in [place], continue home ASA and statin to manage, followup neurovascular surgeon as out-pt. pt and her family recognize and understand pt is high risk for intracranial bleeding with these aneurysms, followup neurovascular surgeon to manage theses medical issue as soon as possible. 3. COPD without exacerbation stable, continue home O2 and meds regimen, followup PCP 4. HTN stable 5. Hyperlipidemiaris stable 6. Macrocytic anemia stable 7. Chronic pain syndrome continue home meds, followup PCP 8. CVA MRI reveals today two infarct up to 2 mm size at left brain. pt's symptoms were resolved. no other focus neurological deficit. pt request to be d/c. continue ASA and increase statin Lipitor to 40 mg daily from 20 mg daily 9. 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 consulted with in [place], continue home ASA and statin to manage, followup neurovascular surgeon as out-pt. 10. Hx Vertigo stable. - HPI History of Present Illness: refer from Dr. Dinh's HPI on 04/09/19 This is a 74 y/o female with hx HTN, HLP, emphysema COPD-home 02 dependent, Vit b12 def, prior hx CKD-3, NC anemia, CVA in 1994 with saccular aneurysm per 04/03/15 MRI brain, p/w feeling unsteady and off balance when getting up from sitting last evening about 7 PM. Her daughter states she had to help the patient from falling over and she was unable to use even stand well on her own. She had a little bit of lightheadedness but not really changed mentation to suggest syncope or near syncope. It seemed to be a balance issue. The patient at baseline has some left-sided deficit from a prior stroke in 1994. However she normally is able to walk on her own and this was an abrupt new problem. The patient denies any visual disturbance over baseline. She did not have any headache. She has not had any vomiting or diarrhea. There was not any trouble speaking according to the daughter. Patient on multiple meds to include gabapentin, celexa, b12, MVI's, xoponex, singulair, advair diskus, procardia, ASA, lipitor. Her labs essential normal with some mild macrocytic anemia, mag borderline low at 1.7, CTA head showed what appears to be chronic microvascular ischemia with encephalomalacia but no acute ischemic insults. - HOSPITAL COURSE Hospital Course: pt was admitted for ataxia and unsteady balance. After pt was medically treated, and was evaluated and treated by P, pt's symptoms was resolved. pt denies any acute neurological deficit. Pt had MRI and MRA and CTA of brain. CTA head shows prior aneurysms in the right ICA terminus yadira 3.1 x 4.3 mm. A previously seen saccular aneurysm yadira 5.1x5.3 mm. In addition, suspicious potential vascular malformation or potential dural AV fistula. Also a medially thrombosed projecting outpaouching arising from the right supraclinoid ICA yadira 3.8x3.9 mm. A total has 3 aneurysms. MRI reveals pt may have two up to 2 mm infarct in left brain. Dr. Crews from [place] was consulted. As symptoms resolved, pt can be medically managed with home meds ASA and Statin, d/c to home and followup neurovascular surgeon for further evaluation. - ALLERGIES Allergies/Adverse Reactions: Allergies Allergy/AdvReac Type Severity Reaction Status Date / Time No Known Drug Allergies Allergy Unverified 12/17/18 13:48 - MEDICATIONS Home Medications: Ambulatory Orders Medication Instructions Recorded Confirmed Ascorbic Acid [Vitamin C] 500 mg PO DAILY 01/13/14 04/10/19 Aspirin EC [Ecotrin] 325 mg PO DAILY 01/13/14 04/10/19 Cholecalciferol (Vitamin D3) 1,000 unit PO DAILY 01/13/14 04/10/19 [Vitamin D3] Citalopram [CeleXA] 20 mg PO DAILY 01/13/14 04/10/19 Cyanocobalamin (Vitamin B-12) 1,000 mcg PO Q7D 01/13/14 04/10/19 [Vitamin B-12] Flaxseed Oil 1,000 mg PO DAILY 01/13/14 04/10/19 Fluticasone [Flonase] 1 sprays MIO DAILY 01/13/14 04/10/19 Gabapentin [Neurontin] 300 mg PO TID 01/13/14 04/10/19 Levalbuterol [Xopenex] 1.25 mg INH DAILY 01/13/14 04/10/19 Montelukast Sodium [Singulair] 10 mg PO DAILY 01/13/14 04/10/19 NIFEdipine [Procardia Xl] 30 mg PO DAILY 01/13/14 04/10/19 [employer]-3/Dha/Epa/Fish Oil [Fish Oil 1,000 mg PO DAILY 01/13/14 04/10/19 Dr 500 mg Softgel] Cyanocobalamin (Vitamin B-12) 1,000 mcg PO DAILY 02/19/15 04/10/19 [Vitamin B-12] Iron Polysaccharide Complex 150 mg PO DAILY 02/19/15 04/10/19 [Polysaccharide Iron 150] Albuterol Sulfate [Proair 2 puffs INH Q4H PRN 04/10/19 04/10/19 Respiclick] Atorvastatin Calcium [Lipitor] 40 mg PO DAILY #10 tablet 04/10/19 Fluticasone/Salmeterol [Advair 1 puffs INH BID 04/10/19 04/10/19 250-50 Diskus] Ibandronate Sodium [Boniva] 150 mg PO .MONTHLY 04/10/19 04/10/19 - PHYSICAL EXAM AT DISCHARGE General Appearance: positive: No acute distress, Alert. negative: Lethargic Eyes Bilateral: positive: Normal inspection, PERRL, No lid inflammation, Conjunctivae nml ENT: positive: ENT inspection nml, Pharynx nml, No signs of dehydration. negative: Purulent nasal drainage, Pharyngeal erythema, Oral lesions Neck: positive: Nml inspection, Thyroid nml, No JVD, Trachea midline. negative: Thyromegaly, Lymphadenopathy (R), Lymphadenopathy (L), Stiff neck, Swelling/bruising, Tracheal deviation Respiratory: positive: Chest non-tender, No respiratory distress. negative: Wheezes, Rales Cardiovascular: positive: Regular rate & rhythm, No murmur, No gallop. negative: Irregularly irregular, Extrasystoles, Tachycardia, Bradycardia, JVD present, Systolic murmur, Diastolic murmur Peripheral Pulses: positive: 2+ Abdomen: positive: Non-tender, No organomegaly, Nml bowel sounds, No distention. negative: Tenderness, Guarding, Rebound Back: positive: Nml inspection. negative: CVA tenderness (R), CVA tenderness (L) Skin: positive: Color nml, No rash, Warm, Dry. negative: Cyanosis, Diaphoresis, Pallor Extremities: positive: Non-tender. negative: Calf tenderness, Della's sign/cords Neurologic/Psychiatric: positive: Oriented x3, Mood/affect nml. negative: Weakness, Sensory loss, Facial droop, Slurred/abnml speech, Depressed mood/affect - LABS Result Diagrams: 04/10/19 05:10 04/09/19 16:22 - FOLLOW UP Follow Up: you may followup your PCP in one week and neurovascular surgeon as out-pt for further evaluation. Should your symptoms return or worsen, you may present ER, call 911 or your PCP for help - TIME SPENT Time Spent in Discharge (Minutes): 60
== END 2019-04-10 16:05 | disposition home or self-care (01) ==
LOC: ED 15:08 → OBS 18:23
PROVIDERS: ADMIT Family Medicine; ATTEND Nurse Practitioner Gerontology
DX: R27.8 Other lack of coordination (principal); I67.1 Cerebral aneurysm, nonruptured; J44.9 Chronic obstructive pulmonary disease, unspecified; I12.9 Hypertensive chronic kidney disease with stage 1 through stage 4 chronic kidney disease, or unspecified chronic kidney disease; N18.3 Chronic kidney disease, stage 3 (moderate); E78.5 Hyperlipidemia, unspecified; D53.9 Nutritional anemia, unspecified; G89.4 Chronic pain syndrome; I69.354 Hemiplegia and hemiparesis following cerebral infarction affecting left non-dominant side; Z99.81 Dependence on supplemental oxygen; Z86.79 Personal history of other diseases of the circulatory system
CPT/HCPCS: 36415; 70496; 70544; 70547; 70551; 80053; 80061; 82607; 82746; 83690; 83735; 84439; 84443; 84484; 85025; 93005; 94640; 97161; 99283; 99284; A9270; G0378; Q9967; 83721; 96360; 96361

== ENCOUNTER 2019-05-24 07:44 | Outpatient (CLI) | payer MEDICARE, OTHER ==
--- NOTE | 2019-05-24 09:19 | Mammography Report ---
Reason: ANNUAL Procedure Date: 05/24/2019 Accession Number: [id number] / [id number] Procedure: IMANI - Screening Mammo Dig Bilat CPT Code: FULL RESULT: EXAM: Screening Mammo Dig Bilat DATE: 05/24/2019 8:28 AM CLINICAL HISTORY: Screening encounter. TECHNIQUE: (B) - Bilateral CC and MLO views were obtained. COMPARISON: 10/21/2015 through 02/14/2011. PARENCHYMAL PATTERN: (A) - The breast(s) demonstrate(s) scattered fibroglandular densities. FINDINGS: There are typically benign vascular and typically benign coarse calcifications. There are no suspicious masses, calcifications, or areas of distortion. IMPRESSION: Benign findings. BI-RADS category 2. RECOMMENDATION: (ANNUAL) - Recommend routine annual screening mammography. BI-RADS CATEGORY: (2) - Benign Findings. STANDARD QUALIFYING STATEMENTS: 1. This examination was not reviewed with the aid of Computer-Aided Detection (CAD). 2. A negative or benign imaging report should not preclude biopsy if clinically suspicious findings are present. 3. Dense breasts may obscure an underlying neoplasm. 4. This examination was reviewed without the aid of 3D breast imaging (tomosynthesis).
== END 2019-05-24 07:45 | disposition home or self-care (01) ==
LOC: DI 07:44
DX: Z12.31 Encounter for screening mammogram for malignant neoplasm of breast (principal)
CPT/HCPCS: 77067

== ENCOUNTER 2019-05-24 07:44 | Outpatient (CLI) | payer MEDICARE, OTHER ==
--- NOTE | 2019-05-27 08:31 | DEXA Report ---
Reason: UNSPECIFIED MENOPAUSAL AND PERIMENOPAUSAL DISORDER Procedure Date: 05/24/2019 Accession Number: [id number] / [id number] Procedure: DEX - Dexa Spine and/or Hip CPT Code: FULL RESULT: EXAM: Dexa Spine and/or Hip DATE: 05/24/2019 8:59 AM CLINICAL HISTORY: UNSPECIFIED MENOPAUSAL AND PERIMENOPAUSAL DISORDER TECHNIQUE: Dual energy x-ray absorptiometry (DXA) was performed on a [facility]. Regions measured are the AP Spine, femoral neck, and if needed forearm. COMPARISON: 02/13/2017. In accordance with the International Society for Clinical Densitometry (ISCD) guidelines, data from previous exams may be reanalyzed using current recommendations and techniques. This is done to allow a more accurate basis for comparison with the current study. FINDINGS: The data for the lumbar spine is as follows: BMD (g/cm/cm) T-SCORE Z-SCORE REGION L1 1.377 2.1 4.1 L2 1.600 3.3 5.4 L3 1.717 4.3 6.4 L4 1.589 3.2 5.3 TOTAL 1.569 3.2 5.3 NOTE: All evaluable vertebrae are used for classification The data for the hip is as follows: BMD (g/cm/cm) T-SCORE Z-SCORE REGION Neck 0.782 -1.8 0.3 TOTAL 0.724 -2.3 -0.3 NOTE: The femoral neck or total proximal femur, whichever is lowest, is used for classification. DXA RESULTS SUMMARY: Spine SCAN DATE [age] BMD CHANGE VS CHANGE VS PREVIOUS PREVIOUS % [birth year][age]24[birth year]2019 [age] 1.569 0.060* 4.0* 02/13/2017 [age] 1.509 * Denotes significant change at the 95% confidence level. Denotes dissimilar scan types or analysis methods. DXA RESULTS SUMMARY: Hip SCAN DATE [age]GE BMD CHANGE VS CHANGE VS PREVIOUS PREVIOUS % [birth year][age][birth year]2019 74.2 0.724 -0.066* -8.4* 02/13/2017 71.9 0.790 * Denotes significant change at the 95% confidence level. Denotes dissimilar scan types or analysis methods. IMPRESSION: THE WHO CLASSIFICATION BASED ON THE INTERNATIONAL REFERENCE STANDARD IS OSTEOPENIA. THE FRACTURE RISK IS INCREASED. RECOMMENDATION: Patients with diagnosis of osteoporosis or osteopenia should have regular bone mineral density assessment. For those eligible for Medicare, routine testing is allowed once every 2 years. Testing frequency can be increased for patients who have rapidly progressing disease or for those who are receiving medical therapy to restore bone mass. COMMENT: World Health Organization (WHO) definitions for osteoporosis and osteopenia: NORMAL BMD: T-score at -1.0 or higher, fracture risk is low OSTEOPENIA BMD: T-score between -1.0 and -2.5, fracture risk is increased. OSTEOPOROSIS BMD: T-score at -2.5 or lower, fracture risk is high. National Osteoporosis Foundation recommends: 1. Obtain adequate dietary calcium (at least 1200 mg per day) and vitamin D (400-800 international units per day). 2. Participate, as appropriate, in regular weightbearing and muscle-strengthening exercise. 3. Avoid tobacco use and reduce alcohol and caffeine intake. 4. For more detailed information see the website at www.NOF.org.
== END 2019-05-24 07:45 | disposition home or self-care (01) ==
LOC: DI 07:44
PROVIDERS: ATTEND Internal Medicine
DX: M85.88 Other specified disorders of bone density and structure, other site (principal)
CPT/HCPCS: 77080

== ENCOUNTER 2019-06-01 19:37 | Outpatient (CLI) | payer MEDICARE, OTHER | END 2019-06-01 19:38 | disposition critical access hospital (66) | LOC: EMS 19:37 | PROVIDERS: ATTEND Surgery | DX: R41.3 Other amnesia (principal); R53.1 Weakness; R47.81 Slurred speech; Z79.01 Long term (current) use of anticoagulants; W18.30XA Fall on same level, unspecified, initial encounter; Y92.002 Bathroom of unspecified non-institutional (private) residence as the place of occurrence of the external cause | CPT/HCPCS: A0425; A0427 ==

== ENCOUNTER 2019-06-01 19:57 | Emergency (ER) | payer MEDICARE, OTHER ==
--- NOTE | 2019-06-01 20:18 | ED Physician Documentation ---
PD HPI HEAD INJURY - Stated complaint Stated Complaint: GLF - Chief complaint Chief Complaint: Neuro - History obtained from History obtained from: Patient, Family, EMS - History of Present Illness Mechanism of head injury: Fell (patient was walking to bathroom, seemed a bit unsteady, and son was nearby to assist. She said she was okay and he walked ahead, then heard thud and turned to see she had fallen to ground unguardedly. She awoke in few seconds, but seemed confused.) Where head injury occurred: Home Timing - onset: Today (an hour or so ago) Location of injury: Front Quality of pain: Pain, Aching Associated symptoms: LOC (brief, seconds), AMS (seems confused). 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 However no new infarct nor bleed. Referred to Neurosurgery and they have appt coming up in next couple weeks.) Recently seen: Admitted Review of Systems Constitutional: denies: Fever, Myalgias Eyes: denies: Loss of vision Nose: denies: Rhinorrhea / runny nose, Congestion Throat: denies: Sore throat Cardiac: denies: Chest pain / pressure, Palpitations Respiratory: denies: Cough GI: reports: Nausea. denies: Abdominal Pain, Vomiting, Diarrhea, Bloody / black stool Skin: denies: Abrasion (s), Laceration (s) Musculoskeletal: denies: Neck pain, Back pain Neurologic: reports: Generalized weakness, Confused, Head injury. denies: Hea dache PD PAST MEDICAL HISTORY - Past Medical History Past Medical History: Yes Cardiovascular: Hypertension Respiratory: COPD, Pneumonia, Shortness of breath Neuro: CVA Endocrine/Autoimmune: None GI: None TELEPHONE MECHANIC: None : Renal insuffiency HEENT: None Psych: None Musculoskeletal: None Derm: None - Past Surgical History Past Surgical History: Yes Ortho: Hip replacement, Other - Present Medications Home Medications: Ambulatory Orders Medication Instructions Recorded Confirmed Ascorbic Acid [Vitamin C] 500 mg PO DAILY 01/13/14 04/10/19 Aspirin EC [Ecotrin] 325 mg PO DAILY 01/13/14 04/10/19 Cholecalciferol (Vitamin D3) 1,000 unit PO DAILY 01/13/14 04/10/19 [Vitamin D3] Citalopram [CeleXA] 20 mg PO DAILY 01/13/14 04/10/19 Cyanocobalamin (Vitamin B-12) 1,000 mcg PO Q7D 01/13/14 04/10/19 [Vitamin B-12] Flaxseed Oil 1,000 mg PO DAILY 01/13/14 04/10/19 Fluticasone [Flonase] 1 sprays MIO DAILY 01/13/14 04/10/19 Gabapentin [Neurontin] 300 mg PO TID 01/13/14 04/10/19 Levalbuterol [Xopenex] 1.25 mg INH DAILY 01/13/14 04/10/19 Montelukast Sodium [Singulair] 10 mg PO DAILY 01/13/14 04/10/19 NIFEdipine [Procardia Xl] 30 mg PO DAILY 01/13/14 04/10/19 Crescent-3/Dha/Epa/Fish Oil [Fish Oil 1,000 mg PO DAILY 01/13/14 04/10/19 Dr 500 mg Softgel] Cyanocobalamin (Vitamin B-12) 1,000 mcg PO DAILY 02/19/15 04/10/19 [Vitamin B-12] Iron Polysaccharide Complex 150 mg PO DAILY 02/19/15 04/10/19 [Polysaccharide Iron 150] Albuterol Sulfate [Proair 2 puffs INH Q4H PRN 04/10/19 04/10/19 Respiclick] Atorvastatin Calcium [Lipitor] 40 mg PO DAILY #10 tablet 04/10/19 Fluticasone/Salmeterol [Advair 1 puffs INH BID 04/10/19 04/10/19 250-50 Diskus] Ibandronate Sodium [Boniva] 150 mg PO .MONTHLY 04/10/19 04/10/19 Cephalexin [Keflex] 500 mg PO Q6H #28 capsule 06/01/19 - Allergies Allergies/Adverse Reactions: Allergies Allergy/AdvReac Type Severity Reaction Status Date / Time No Known Drug Allergies Allergy Verified 06/01/19 20:09 - Living Situation Living Situation: reports: With family Living Arrangement: reports: At home - Social History Does the pt smoke?: No Smoking Status: Never smoker Does the pt drink ETOH?: Yes ETOH Use: Liquor (son says she has same single drink of liquor every evening, had not had more than usual today. ) Does the pt have substance abuse?: No - Immunizations Immunizations are current?: Yes - POLST Patient has POLST: No PD ED PE NORMAL - Vitals Vital signs reviewed: Yes - General General: No: Well developed/nourished (frail but appears well groomed and kempt.) - HEENT HEENT: PERRL, Pharynx benign (smell of alcohol on breath.), Other (mild hyperemia of both eyes. tenderness frontal area without bruising. ) - Neck Neck: Supple, no meningeal sign, No bony TTP, No adenopathy - Cardiac Cardiac: RRR, Other (1/6 murmur left chest. ) - Respiratory Respiratory: Clear bilaterally - Abdomen Abdomen: Soft, Non tender - Back Back: No CVA TTP, No spinal TTP - Derm Derm: Normal color, Warm and dry - Extremities Extremities: No tenderness to palpate, Normal ROM s pain - Neuro Neuro: No motor deficit, No sensory deficit, Normal speech, Other (slight slurring of speech). No: Alert and oriented X 3 (not certain on date/time) Eye Opening: Spontaneous Motor: Obeys Commands Verbal: Confused GCS Score: 14 - Psych Psych: Normal affect Results - Vitals Vitals: Vital Signs - 24 hr 06/01/19 06/01/19 06/01/19 20:00 20:16 21:19 Temperature 36.8 C Heart Rate 87 84 80 Respiratory 18 6 L 18 Rate Blood Pressure 103/59 L 113/53 L O2 Saturation 97 100 06/01/19 06/01/19 06/01/19 21:34 22:45 23:24 Temperature Heart Rate 83 86 Respiratory 17 18 18 Rate Blood Pressure 97/64 111/53 L O2 Saturation 100 98 Oxygen O2 Source [With Activity] Nasal cannula O2 Source Nasal cannula Oxygen Flow Rate 2 - EKG (time done) 20:07 Rate: Rate (enter#) (79) Rhythm: NSR [place]: Normal Intervals: Normal IA QRS: Normal Ischemia: Normal ST segments. No: ST elevation c/w ischemia, ST depression - Labs Labs: Laboratory Tests 06/01/19 06/01/19 06/01/19 21:30 21:30 21:30 WBC 5.9 RBC 2.90 L Hgb 8.7 L Hct 28.7 L MCV 99.0 MCH 30.0 MCHC 30.3 L RDW 14.5 Plt Count 208 MPV 12.6 H Neut # (Auto) 3.0 Lymph # (Auto) 2.1 Titus # (Auto) 0.6 Eos # (Auto) 0.1 Baso # (Auto) 0.0 Absolute Nucleated RBC 0.00 Nucleated RBC % 0.0 PT 11.0 INR 1.0 APTT 34.4 H Sodium 140 Potassium 3.6 Chloride 103 Carbon Dioxide 27 Anion Gap 10.0 BUN 14 Creatinine 0.6 Estimated GFR (MDRD) 97 Glucose 92 Calcium 8.6 Magnesium 1.9 Total Bilirubin 0.2 AST 20 ALT 16 Alkaline Phosphatase 34 L Total Protein 6.0 L Albumin 3.3 Globulin 2.7 Albumin/Globulin Ratio 1.2 Lipase 25 Urine Color Urine Clarity Urine pH Ur Specific [place] Urine Protein Urine Glucose (UA) Urine Ketones Urine Occult Blood Urine Nitrite Urine Bilirubin Urine Urobilinogen Ur Leukocyte Esterase Urine RBC Urine WBC Ur Squamous Epith Cells Urine Bacteria Ur Microscopic Review Urine Culture Comments Ethyl Alcohol 06/01/19 06/01/19 21:30 21:40 WBC RBC Hgb Hct MCV MCH MCHC RDW Plt Count MPV Neut # (Auto) Lymph # (Auto) Titus # (Auto) Eos # (Auto) Baso # (Auto) Absolute Nucleated RBC Nucleated RBC % PT INR APTT Sodium Potassium Chloride Carbon Dioxide Anion Gap BUN Creatinine Estimated GFR (MDRD) Glucose Calcium Magnesium Total Bilirubin AST ALT Alkaline Phosphatase Total Protein Albumin Globulin Albumin/Globulin Ratio Lipase Urine Color YELLOW Urine Clarity HAZY Urine pH 8.5 H Ur Specific [place] 1.010 Urine Protein NEGATIVE Urine Glucose (UA) NEGATIVE Urine Ketones NEGATIVE Urine Occult Blood NEGATIVE Urine Nitrite POSITIVE H Urine Bilirubin NEGATIVE Urine Urobilinogen 0.2 (NORMAL) Ur Leukocyte Esterase SMALL H Urine RBC 0-5 Urine WBC 6-10 H Ur Squamous Epith Cells FEW Squamous Urine Bacteria Moderate H Ur Microscopic Review INDICATED Urine Culture Comments INDICATED Ethyl Alcohol 231.4 - Rads (name of study) head CT Radiology: Prelim report reviewed (prior infarct. no bleeding nor fractures. ), See rad report PD MEDICAL DECISION MAKING - ED course Complexity details: reviewed old records (prior hospitalist notes and imaging results. ), reviewed results (No ICH nor acute change on CT head. Has UTI, so could contribute to weakness. Does not seem septic. Elevated BA, but son says she did not have unusual amount to drink for her. Certainly can add to weakness/ataxia. ), re-evaluated patient (was going to watch patient in ER for few hours, to allow ETOH to lower and reassess her steadiness. However patient said she wanted to head home and be discharged sooner. Gave IV abx, and held second liter NS. Family present and will bring her home. They would prefer her to stay longer here, but patient insistent on leaving and they went with her opinion. ), considered differential (consider ICH, given history of aneurysms. Also look for metabolic reasons. Has had weakness so eval for infection. ), d/w patient, d/w family, d/w consultant electronics ([facility], Hospitalist, who felt patient did not meet criteria for OBS, which I considered in lieu of her still feeling some ataxia and lightheaded. ) Departure - Departure Disposition: 01 Home, Self Care Clinical Impression: Transient hypotension UTI (urinary tract infection) Qualifiers: Urinary tract infection type: acute cystitis Hematuria presence: without hematuria Qualified Code(s): N30.00 - Acute cystitis without hematuria Syncope Qualifiers: Syncope type: unspecified Qualified Code(s): R55 - Syncope and collapse Alcohol intoxication Qualifiers: Complication of substance-induced condition: uncomplicated Qualified Code(s): F10.920 - Alcohol use, unspecified with intoxication, uncomplicated Anemia Qualifiers: Anemia type: unspecified type Qualified Code(s): D64.9 - Anemia, unspecified Condition: Stable Instructions: ED Fainting Unkn Cause, ED UTI Cystitis Female Prescriptions: Cephalexin [Keflex] 500 mg PO Q6H #28 capsule Comments: Stay well-hydrated. Cephalexin and 4 times a day as directed for a week for the urinary tract infection. Continue usual medications. Recheck if not improved over the next few days. I did talk with our hospitalist (admitting doctor) who felt there were not criteria for admission. See how much better you get over the next couple of days and return if worsening symptoms or other problems. Discharge Date/Time: 06/01/19 23:25
[2019-06-01] MEDS ORDERED: SODIUM CHLORIDE 0.9% 1,000 ML IV ONE ×2 (20:35→22:20)
--- NOTE | 2019-06-01 21:33 | CT Report ---
Reason: fall, ? on blood thinner Procedure Date: 06/01/2019 Accession Number: [id number] / [id number] Procedure: CT - HEAD WO CPT Code: FULL RESULT: EXAM: CT HEAD EXAM DATE: 06/01/2019 08:56 PM. CLINICAL HISTORY: Fall, ? on blood thinner. COMPARISON: HEAD ANGIO 04/09/2019 4:59 PM. TECHNIQUE: Multiaxial CT images were obtained from the foramen magnum to the vertex. Reformats: Sagittal and coronal. IV contrast: None. In accordance with CT protocol optimization, one or more of the following dose reduction techniques were utilized for this exam: automated exposure control, adjustment of mA and/or KV based on patient size, or use of iterative reconstructive technique. FINDINGS: Parenchyma: There is encephalomalacia and volume loss in the right frontal lobe. Negative for acute intracranial hemorrhage. There is no midline shift or mass-effect. Extraaxial Spaces: No subdural or epidural collections identified. Ventricles: Ventricles appear enlarged but are symmetric and unchanged. Sinuses and Orbits: Imaged paranasal sinuses, orbits, and mastoids show no significant abnormality. Bones: No evidence of fracture or calvarial defect. Other: None. IMPRESSION: 1. Negative for acute intracranial hemorrhage. 2. 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 RADIA
[2019-06-01 21:39] LABS: BASOPHILS % (AUTO) 0.5 %; EOSINOPHILS # (AUTO) 0.1 10^3/uL (0.0-0.7); HGB - HEMOGLOBIN 8.7 g/dL (12.0-16.0); LYMPHOCYTES # (AUTO) 2.1 10^3/uL (1.5-3.5); LYMPHOCYTES % (AUTO) 35.8 %; MEAN CORPUSCULAR HGB CONC 30.3 g/dL (32.0-36.0); MEAN PLATELET VOLUME 12.6 fL (7.9-10.8); MONOCYTES # (AUTO) 0.6 10^3/uL (0.0-1.0); NEUTROPHILS % (AUTO) 51.5 %; PLT - PLATELET COUNT 208 10^3/uL (130-450); RED CELL DISTRIBUTION WIDTH 14.5 % (12.0-15.0); WHITE BLOOD COUNT 5.9 x10^3/uL (4.8-10.8)
[2019-06-01 21:47] LABS: PARTIAL THROMBOPLASTIN TIME 34.4 secs (24.9-33.3)
[2019-06-01 21:48] LABS: ALBUMIN 3.3 g/dL (3.2-5.5); ALBUMIN/GLOBULIN RATIO 1.2 (1.0-2.2); BILIRUBIN,TOTAL 0.2 mg/dL (0.2-1.0); CALCIUM 8.6 mg/dL (8.5-10.3); CREATININE 0.6 mg/dL (0.4-1.0); MAGNESIUM 1.9 mg/dL (1.7-2.8)
[2019-06-01 21:51] LABS: BILIRUBIN,URINE NEGATIVE (NEGATIVE); GLUCOSE, URINE (UA) NEGATIVE (NEGATIVE); KETONES,URINE (UA) NEGATIVE (NEGATIVE); LEUKOCYTE ESTERASE, URINE SMALL (NEGATIVE); NITRITE,URINE POSITIVE (NEGATIVE); OCCULT BLOOD,URINE NEGATIVE (NEGATIVE); PH,URINE 8.5 PH (5.0-7.5); PROTEIN,URINE NEGATIVE (NEGATIVE); UROBILINOGEN,URINE 0.2 (NORMAL) E.U./dL (NORMAL)
[2019-06-01 21:56] LABS: CLARITY,URINE HAZY (CLEAR)
[2019-06-01 22:07] LABS: BACTERIA,URINE Moderate /HPF (None Seen); RBC,URINE 0-5 /HPF (0-5)
[2019-06-01 22:10] LABS: SQUAMOUS EPITHELIAL CELL,UR FEW Squamous (<= Few)
[2019-06-01] MEDS ORDERED: cefTRIAXone 1 GM VIAL IVP STA (22:20)
[2019-06-01 22:58] VITALS: BP 111/53
== END 2019-06-01 23:25 | disposition home or self-care (01) ==
LOC: EDUNIT# → ED 19:57
DX: I95.9 Hypotension, unspecified (principal); N30.00 Acute cystitis without hematuria; R55 Syncope and collapse; F10.920 Alcohol use, unspecified with intoxication, uncomplicated; D64.9 Anemia, unspecified; I10 Essential (primary) hypertension
CPT/HCPCS: 36415; 70450; 80053; 80320; 81001; 81003; 83605; 83690; 83735; 85025; 85610; 85730; 87077; 87086; 87181; 93005; 96361; 96374; 99284

== ENCOUNTER 2020-01-01 11:29 | Outpatient (CLI) | payer MEDICARE, OTHER | END 2020-01-01 11:30 | disposition home or self-care (01) | LOC: COV 11:29 | PROVIDERS: ATTEND Family Medicine | DX: R05 Cough (principal); R50.9 Fever, unspecified | CPT/HCPCS: 81599; U0002 ==

== ENCOUNTER 2020-05-04 10:05 | Outpatient (CLI) | payer MEDICARE, OTHER ==
--- NOTE | 2020-05-04 11:05 | XRAY Report ---
PROCEDURE: Chest 2 View X-Ray INDICATIONS: COUGH TECHNIQUE: 2 view(s) of the chest. COMPARISON: 12/17/2018. FINDINGS: Surgical changes and devices: None. Lungs and pleura: No pleural effusions or pneumothorax. Lungs are hyperinflated suggesting COPD. The re is interstitial prominence in the lungs bilaterally likely represents chronic interstitial lung di sease. Patchy opacity in the right lung apex which could represent recurrent pneumonia or postinflamm atory scarring. There is new increased opacification in the posterior aspect of the right lung base c oncerning for pneumonia versus aspiration. Mediastinum: Mediastinal contours are normal. Heart size is normal. Bones and chest wall: No suspicious bony abnormalities. Soft tissues appear unremarkable. IMPRESSION: 1. Right lower lobe aspiration versus pneumonia. 2. Small opacity in the right lung apex which is decreased in size compared to 12/17/2018. Finding coul d represent postinflammatory scarring or recurrent pneumonia. Reviewed by: Yaz Daily MD, PhD on 05/04/2020 11:04 AM PDT Approved by: Yaz Daily MD, PhD on 05/04/2020 11:04 AM PDT Station ID: [id number]
== END 2020-05-04 10:06 | disposition home or self-care (01) ==
LOC: DI 10:05
PROVIDERS: ATTEND Internal Medicine
DX: R91.8 Other nonspecific abnormal finding of lung field (principal)
CPT/HCPCS: 71046

== ENCOUNTER 2020-05-28 11:17 | Outpatient (CLI) | payer MEDICARE, OTHER ==
--- NOTE | 2020-05-28 15:56 | XRAY Report ---
PROCEDURE: Chest 2 View X-Ray INDICATIONS: CHR OBSTRUCTIVE PULMON DISEASE WITH (ACUTE) LOWER TECHNIQUE: 2 view(s) of the chest. COMPARISON: 05/04/2020. FINDINGS: Surgical changes and devices: None. Lungs and pleura: No pleural effusions or pneumothorax. Lungs are clear. Right lower lobe and right upper lobe opacities have resolved in the interval since prior exam. Lungs are hyperinflated compati ble with history of COPD. Mediastinum: Mediastinal contours are normal. Heart size is normal. Bones and chest wall: No suspicious bony abnormalities. Soft tissues appear unremarkable. IMPRESSION: No acute cardiopulmonary disease process. Reviewed by: Yaz Daily MD, PhD on 05/28/2020 3:54 PM PDT Approved by: Yaz Daily MD, PhD on 05/28/2020 3:54 PM PDT Station ID: [id number]
== END 2020-05-28 11:18 | disposition home or self-care (01) ==
LOC: DI.N 11:17
PROVIDERS: ATTEND Internal Medicine Critical Care Medicine
DX: J44.0 Chronic obstructive pulmonary disease with (acute) lower respiratory infection (principal)
CPT/HCPCS: 71046

== ENCOUNTER 2021-04-20 11:16 | Outpatient (CLI) | payer MEDICARE, OTHER ==
--- NOTE | 2021-04-20 14:44 | XRAY Report ---
PROCEDURE: Chest 2 View X-Ray INDICATIONS: CHRONIC OBRSTRUCTIVE PULMONARY DISEASE TECHNIQUE: 2 view(s) of the chest. COMPARISON: 05/28/2020. FINDINGS: Surgical changes and devices: None. Lungs: Scattered scarring/atelectasis. No acute consolidation. Mild elevation of the right hemidiaphr agm. Pleura: No pleural effusions or pneumothorax. Mediastinum: Mediastinal contours are normal. Heart size is normal. Bones and chest wall: No suspicious bony abnormalities. Soft tissues appear unremarkable. IMPRESSION: No acute disease. Reviewed by: Shay Cho MD on 04/20/2021 2:43 PM PDT Approved by: Shay Cho MD on 04/20/2021 2:43 PM PDT Station ID: [id number]
== END 2021-04-20 11:17 | disposition home or self-care (01) ==
LOC: DI 11:16
PROVIDERS: ATTEND Internal Medicine
DX: J44.9 Chronic obstructive pulmonary disease, unspecified (principal)

== ENCOUNTER 2021-11-08 08:57 | Outpatient (CLI) | payer MEDICARE, OTHER ==
[2021-11-08 09:49] LABS: BASOPHILS % (AUTO) 0.2 %; EOSINOPHILS # (AUTO) 0.1 10^3/uL (0.0-0.7); HCT - HEMATOCRIT 33.1 % (37.0-47.0); HGB - HEMOGLOBIN 10.5 g/dL (12.0-16.0); LYMPHOCYTES # (AUTO) 0.9 10^3/uL (1.5-3.5); LYMPHOCYTES % (AUTO) 15.3 %; MEAN CORPUSCULAR HEMOGLOBIN 29.7 pg (27.0-31.0); MEAN CORPUSCULAR HGB CONC 31.7 g/dL (32.0-36.0); MEAN CORPUSCULAR VOLUME 93.8 fL (81.0-99.0); MEAN PLATELET VOLUME 11.2 fL (7.9-10.8); MONOCYTES # (AUTO) 0.5 10^3/uL (0.0-1.0); MONOCYTES % (AUTO) 8.9 %; NEUTROPHILS # (AUTO) 4.3 10^3/uL (1.5-6.6); NEUTROPHILS % (AUTO) 74.3 %; PLT - PLATELET COUNT 268 10^3/uL (130-450); RED BLOOD COUNT 3.53 10^6/uL (4.20-5.40); RED CELL DISTRIBUTION WIDTH 13.2 % (12.0-15.0); WHITE BLOOD COUNT 5.7 x10^3/uL (4.8-10.8)
[2021-11-08 10:24] LABS: ALBUMIN 3.8 g/dL (3.2-5.5); ALBUMIN/GLOBULIN RATIO 1.2 (1.0-2.2); ALKALINE PHOSPHATASE 57 IU/L (42-121); ALT ALANINE AMINOTRANSFERASE < 10 IU/L (10-60); AST ASPARTATE AMINOTRANSFERASE 16 IU/L (10-42); BILIRUBIN,TOTAL 0.6 mg/dL (0.2-1.0); BUN - BLOOD UREA NITROGEN 12 mg/dL (6-20); CALCIUM 9.3 mg/dL (8.5-10.3); CARBON DIOXIDE - CO2 28 mmol/L (21-32); CHLORIDE 97 mmol/L (101-111); CHOL/HDL RATIO 2.6 (<4.4); CHOLESTEROL 161 mg/dL; CREATININE 0.5 mg/dL (0.4-1.0); GFR - MDRD 120 (>89); GLUCOSE 96 mg/dL (70-100); HDL CHOLESTEROL 61 mg/dL; LDL CHOLESTEROL,CALCULATED 90 mg/dL; LDL/HDL RATIO 1.5 (<4.4); POTASSIUM 3.9 mmol/L (3.5-5.0); SODIUM 134 mmol/L (135-145); TOTAL PROTEIN 6.9 g/dL (6.7-8.2); TRIGLYCERIDES 52 mg/dL; URIC ACID 3.4 mg/dL (2.6-7.2); VLDL CHOLESTEROL 10 mg/dL
[2021-11-08 10:25] LABS: RHEUMATOID FACTOR NEGATIVE (Negative)
--- NOTE | 2021-11-08 16:48 | XRAY Report ---
PROCEDURE: Foot 3 View RT INDICATIONS: RHEUMATOID ARTHRITIS, UNSPECIFIED TECHNIQUE: 3 views of the foot were acquired. COMPARISON: None FINDINGS: Bones: No fractures or dislocations. Diffuse osteopenia is present. Moderate to severe IP narrowing is present particularly at the DIP joints. Prominent first MTP narrowing is present. Midfoot degener ative changes are present. There are no definitive areas of erosion identified. There is a focus of c alcification within the distal tibia. It measures approximately 1 cm. No priors are available for com parison. Soft tissues: No tibiotalar joint effusion. Achilles tendon appears normal. IMPRESSION: Diffuse arthritic change and osteopenia without definitive erosions. Focus of calcification within the distal tibia. Ankle x-rays are recommended for better delineation. However, it raises suspicion for chondroid lesion. Reviewed by: Blank Connell MD on 11/08/2021 4:47 PM PST Approved by: Blank Connell MD on 11/08/2021 4:47 PM PST Station ID: [id number]
== END 2021-11-08 08:58 | disposition home or self-care (01) ==
LOC: DI 08:57
PROVIDERS: ATTEND Internal Medicine
DX: M06.9 Rheumatoid arthritis, unspecified (principal); L60.0 Ingrowing nail; M19.071 Primary osteoarthritis, right ankle and foot; M85.871 Other specified disorders of bone density and structure, right ankle and foot; R93.6 Abnormal findings on diagnostic imaging of limbs; I10 Essential (primary) hypertension; E55.9 Vitamin D deficiency, unspecified; J44.9 Chronic obstructive pulmonary disease, unspecified; Z79.899 Other long term (current) drug therapy; I73.9 Peripheral vascular disease, unspecified
CPT/HCPCS: 36415; 80053; 80061; 82306; 83721; 84443; 84550; 85025; 85651; 86430

== ENCOUNTER 2022-01-06 03:44 | Outpatient (CLI) | payer MEDICARE, OTHER | END 2022-01-06 03:45 | disposition short-term general hospital (02) | LOC: EMS 03:44 | DX: R06.09 Other forms of dyspnea (principal); R53.1 Weakness; R42 Dizziness and giddiness; R19.5 Other fecal abnormalities; R10.9 Unspecified abdominal pain; Z99.81 Dependence on supplemental oxygen | CPT/HCPCS: A0425; A0427 ==

== ENCOUNTER 2022-01-13 18:32 | Outpatient (CLI) | payer MEDICARE, OTHER | END 2022-01-13 18:33 | disposition short-term general hospital (02) | LOC: EMS 18:32 | DX: R53.1 Weakness (principal); R19.5 Other fecal abnormalities; Z99.81 Dependence on supplemental oxygen; Z86.16 Personal history of COVID-19 | CPT/HCPCS: A0425; A0429 ==

== ENCOUNTER 2022-02-16 08:00 | Outpatient (CLI) | payer MEDICARE, OTHER ==
[2022-02-16 08:42] LABS: BASOPHILS % (AUTO) 0.3 %; EOSINOPHILS % (AUTO) 0.7 %; HCT - HEMATOCRIT 33.2 % (37.0-47.0); HGB - HEMOGLOBIN 10.5 g/dL (12.0-16.0); LYMPHOCYTES # (AUTO) 1.3 10^3/uL (1.5-3.5); LYMPHOCYTES % (AUTO) 21.3 %; MEAN CORPUSCULAR HEMOGLOBIN 29.8 pg (27.0-31.0); MEAN CORPUSCULAR HGB CONC 31.6 g/dL (32.0-36.0); MEAN CORPUSCULAR VOLUME 94.3 fL (81.0-99.0); MEAN PLATELET VOLUME 9.8 fL (7.9-10.8); MONOCYTES # (AUTO) 0.4 10^3/uL (0.0-1.0); MONOCYTES % (AUTO) 6.9 %; NEUTROPHILS # (AUTO) 4.3 10^3/uL (1.5-6.6); NEUTROPHILS % (AUTO) 69.7 %; PLT - PLATELET COUNT 222 10^3/uL (130-450); RED BLOOD COUNT 3.52 10^6/uL (4.20-5.40); RED CELL DISTRIBUTION WIDTH 16.7 % (12.0-15.0); WHITE BLOOD COUNT 6.1 x10^3/uL (4.8-10.8)
[2022-02-16 09:23] LABS: ALBUMIN 3.2 g/dL (3.2-5.5); ALBUMIN/GLOBULIN RATIO 1.1 (1.0-2.2); ALKALINE PHOSPHATASE 54 IU/L (42-121); ALT ALANINE AMINOTRANSFERASE 10 IU/L (10-60); AST ASPARTATE AMINOTRANSFERASE 16 IU/L (10-42); BILIRUBIN,TOTAL 0.5 mg/dL (0.2-1.0); BUN - BLOOD UREA NITROGEN 11 mg/dL (6-20); CALCIUM 8.8 mg/dL (8.5-10.3); CARBON DIOXIDE - CO2 28 mmol/L (21-32); CHLORIDE 100 mmol/L (101-111); CHOLESTEROL 176 mg/dL; CREATININE 0.6 mg/dL (0.4-1.0); GFR - MDRD 97 (>89); GLUCOSE 71 mg/dL (70-100); HDL CHOLESTEROL 59 mg/dL; LDL CHOLESTEROL,CALCULATED 93 mg/dL; LDL/HDL RATIO 1.6 (<4.4); POTASSIUM 4.1 mmol/L (3.5-5.0); SODIUM 138 mmol/L (135-145); TOTAL PROTEIN 6.2 g/dL (6.7-8.2); TRIGLYCERIDES 119 mg/dL; VLDL CHOLESTEROL 24 mg/dL
== END 2022-02-18 13:07 | disposition home or self-care (01) ==
LOC: LAB 08:00
PROVIDERS: ATTEND Internal Medicine
DX: D50.9 Iron deficiency anemia, unspecified (principal); E55.9 Vitamin D deficiency, unspecified; F33.0 Major depressive disorder, recurrent, mild; I10 Essential (primary) hypertension; J44.9 Chronic obstructive pulmonary disease, unspecified; E78.2 Mixed hyperlipidemia
CPT/HCPCS: 36415; 80053; 80061; 83721; 85025

== ENCOUNTER 2022-02-24 09:41 | Outpatient (CLI) | payer MEDICARE, OTHER ==
[2022-02-24 10:03] LABS: BASOPHILS % (AUTO) 0.2 %; EOSINOPHILS % (AUTO) 0.5 %; HCT - HEMATOCRIT 35.1 % (37.0-47.0); HGB - HEMOGLOBIN 10.8 g/dL (12.0-16.0); LYMPHOCYTES # (AUTO) 1.1 10^3/uL (1.5-3.5); LYMPHOCYTES % (AUTO) 17.8 %; MEAN CORPUSCULAR HEMOGLOBIN 29.8 pg (27.0-31.0); MEAN CORPUSCULAR HGB CONC 30.8 g/dL (32.0-36.0); MEAN CORPUSCULAR VOLUME 96.7 fL (81.0-99.0); MEAN PLATELET VOLUME 10.2 fL (7.9-10.8); MONOCYTES # (AUTO) 0.6 10^3/uL (0.0-1.0); MONOCYTES % (AUTO) 10.7 %; NEUTROPHILS # (AUTO) 4.1 10^3/uL (1.5-6.6); NEUTROPHILS % (AUTO) 69.1 %; PLT - PLATELET COUNT 395 10^3/uL (130-450); RED BLOOD COUNT 3.63 10^6/uL (4.20-5.40); RED CELL DISTRIBUTION WIDTH 16.9 % (12.0-15.0); RETICULOCYTE COUNT % (AUTO) 2.19 % (0.5-2.3); WHITE BLOOD COUNT 5.9 x10^3/uL (4.8-10.8)
[2022-02-24 10:25] LABS: % IRON SATURATION 29 % (20-50); IRON 91 ug/dL (28-170); TOTAL IRON BINDING CAPACITY 314 ug/dL (250-450); TRANSFERRIN 224 mg/dL (192-382)
[2022-02-24 10:44] LABS: FERRITIN 60.5 ng/mL (11.0-306.8)
[2022-02-24 10:47] LABS: FOLATE 8.66 ng/mL (5.90 - >24.8)
== END 2022-02-24 09:42 | disposition home or self-care (01) ==
LOC: LAB 09:41
PROVIDERS: ATTEND Internal Medicine
DX: I10 Essential (primary) hypertension (principal); D50.9 Iron deficiency anemia, unspecified; Z79.899 Other long term (current) drug therapy; J44.9 Chronic obstructive pulmonary disease, unspecified; I48.91 Unspecified atrial fibrillation
CPT/HCPCS: 36415; 82607; 82728; 82746; 83540; 84466; 85025; 85045

== ENCOUNTER 2022-04-11 08:42 | Outpatient (CLI) | payer MEDICARE, OTHER ==
--- NOTE | 2022-04-11 12:59 | CT Report ---
PROCEDURE: CT neck without contrast INDICATIONS: COPD, DYSPHAGIA TECHNIQUE: Non-contrast 3.0 mm axial sections acquired from the sella to the aortic arch. Additiona l oblique axial 3.0 mm sections acquired through the pharynx. 3 mm thick coronal reformats were gene rated. For radiation dose reduction, the following was used: automated exposure control, adjustment of mA and/or kV according to patient size. COMPARISON: None. FINDINGS: Skull Base: The visualized intracranial contents, skull, and orbits are unremarkable. Dense atherosc lerotic calcification noted in the petrous and cavernous segments as well as both proximal internal c arotid arteries. Visualized paranasal sinuses are clear. Pharynx and Larynx: The nasopharyngeal airway is patent and midline. Parapharyngeal soft tissues in cluding palantine tonsils and base of the tongue are normal. Retropharyngeal space unremarkable. No rmal appearance of the false and true vocal cords. Muscles and Fascial Planes : Fascial planes are well maintained. No abscess or mass lesion. Lymph Nodes: No evidence of adenopathy. Vasculature: Unremarkable. Submandibular and Parotid Glands: Normal in size and attenuation. Thyroid: Unremarkable. No enlarged or calcified nodules. Bones: There is advanced degenerative disc disease and arthropathy in the mid cervical spine with rev ersal normal cervical lordosis and degenerative anterior spinal listhesis at C2-3 and C3-4. Craniover tebral relationships are normal. Lung Apices: Biapical bullous pulmonary emphysema with scarring and calcified granuloma noted in the right lung apex. IMPRESSION: 1. Biapical pulmonary embolus emphysema with scarring diameter right apical calcified granuloma 2. Advanced degenerative disc disease and arthropathy with grade 2 anterior spinal listhesis at C2-3 and grade 1 anterior spondylolisthesis C3-4. 3. Dense atherosclerotic vascular calcification. Reviewed by: Chago Nix MD on 04/11/2022 11:58 AM MAREK Approved by: Chago Nix MD on 04/11/2022 11:58 AM MAREK Station ID: [id number]
--- NOTE | 2022-04-11 14:52 | CT Report ---
PROCEDURE: CHEST WO INDICATIONS: COPD, DYSPHAGIA TECHNIQUE: Noncontrast 1mm axial images were acquired from the pulmonary apices to the posterior costophrenic an gles. Axial 5 mm soft tissue kernel reconstructions were performed as well as 8 mm axial MIP and cor onal and sagittal 5 mm reformations. For radiation dose reduction, the following was used: automate d exposure control, adjustment of mA and/or kV according to patient size. COMPARISON: 06/21/2016 FINDINGS: Image quality: Excellent. Lungs and pleura: Again noted is biapical pleural-parenchymal scarring in the presence of right apica l calcified this is in addition to centrilobular emphysema, which is moderate to severe. There is foc al mucus in the right lower lobe pulmonary artery on image 163/4. Granulomata, consistent with chroni c granulomatous disease. No acute air space opacities. No pleural effusions or pneumothorax. Centra l and peripheral airways are patent and normal in caliber. Mediastinum: Heart size is normal. Severe coronary artery calcifications. No pericardial effusion. No mediastinal adenopathy by size criteria. Thoracic aorta and central pulmonary arteries are sophia l in size. Great vessel origin calcifications. Esophagus is normal in caliber. No hiatal hernia. Bones and chest wall: No suspicious bony lesions. No acute vertebral body compression fractures. Un changed moderate chronic T12 compression. No interval compression fractures noted. No axillary or rosario praclavicular adenopathy by size criteria. The thyroid is normal in size and there are no incidental findings. Abdomen: Visualized upper abdominal solid organs and bowel loops appear normal in the absence of con trast. IMPRESSION: 1. Stable findings. No evidence of acute pulmonary process. 2. Biapical pleural-parenchymal scarring and right apical granulomatous change consistent with chroni c granulomatous disease. 3. Moderate to severe centrilobular emphysema. 4. Severe coronary artery calcifications. 5. ASCVD. Comment: Consider yearly screening lung CT. CLINICAL RECOMMENDATION STATEMENTS: In patients <35 years with an ITN detected on CT, MRI, or extrathyroidal ultrasound, the Committee re commends further evaluation with dedicated thyroid ultrasound if the nodule is "e1 cm and has no susp icious imaging features, and if the patient has normal life expectancy. In patients "e35 years with an ITN detected on CT, MRI, or extrathyroidal ultrasound, the Committee r ecommends further evaluation with dedicated thyroid ultrasound if the nodule is "e1.5 cm and has no s uspicious imaging features, and if the patient has normal life expectancy. (ACR, 2014) Reviewed by: Wili Farmer MD on 04/11/2022 2:51 PM PDT Approved by: Wili Farmer MD on 04/11/2022 2:51 PM PDT Station ID: [id number]
== END 2022-04-11 08:43 | disposition home or self-care (01) ==
LOC: DI 08:42
PROVIDERS: ATTEND Internal Medicine
DX: J43.2 Centrilobular emphysema (principal); R13.10 Dysphagia, unspecified; M50.31 Other cervical disc degeneration, high cervical region; M43.12 Spondylolisthesis, cervical region; I70.90 Unspecified atherosclerosis; I25.10 Atherosclerotic heart disease of native coronary artery without angina pectoris

== ENCOUNTER 2022-05-05 11:33 | Outpatient (CLI) | payer MEDICARE, OTHER | END 2022-05-05 11:34 | disposition critical access hospital (66) | LOC: EMS 11:33 | DX: R06.02 Shortness of breath (principal) | CPT/HCPCS: A0425; A0429 ==

== ENCOUNTER 2022-05-05 11:54 | Emergency (ER) | payer MEDICARE, OTHER ==
--- OUTSIDE RECORDS SUMMARY | 2022-05-05 12:04 | EXTERNAL MEDICAL SUMMARY RPT | Continuity of Care Document ---
:1945 Author Organization [facility] Address [address] [place] [address] Phone Allergies No information. Encounters No information. Functional Status No information. Immunizations No information. Medications No information. Problems No information. Procedures No information. Results/Labs test date author facility value unit interpret ation Result panel 1 (unknown) (no (unknown) (unknown) (no value) (units (unk nown) date) unknown) (unknown) (no (unknown) (unknown) Date of Service: (units (unknown) date) 03/08/22 unknown) (unknown) (no (unknown) (unknown) (no value) (units (unk nown) date) unknown) (unknown) (no (unknown) (unknown) Allergies (units (unkn own) date) unknown) (unknown) (no (unknown) (unknown) Home Medications (units (unknown) date) unknown) (unknown) (no (unknown) (unknown) [facility] (units (unknown) date) [address] unknown) [place] [address] (unknown) (no (unknown) (unknown) Laboratory Last (units (unknown) date) Values unknown) (unknown) (no (unknown) (unknown) Oncology Progress (units (unknown) date) Note unknown) (unknown) (no (unknown) (unknown) Vital Signs (units (un known) date) unknown) (unknown) (no (unknown) (unknown) (no value) (units (unk nown) date) unknown) (unknown) (no (unknown) (unknown) Temp Pulse Resp BP (units (unknown) date) Pulse Ox unknown) (unknown) (no (unknown) (unknown) 03/08/22 10:08 (units (unknown) date) 97.7 F 96 H 16 unknown) 120/65 98 (unknown) (no (unknown) (unknown) Medication (units (unk nown) date) Instructions unknown) Recorded Confirmed Type (unknown) (no (unknown) (unknown) % Saturation 21 % (units (unknown) date) (15-50) 08/17/21 unknown) 12:33 (unknown) (no (unknown) (unknown) (1) Anemia (units (unk nown) date) unknown) (unknown) (no (unknown) (unknown) - Date of Visit (units (unknown) date) unknown) (unknown) (no (unknown) (unknown) - Labs (units (unkno wn) date) unknown) (unknown) (no (unknown) (unknown) - Patient (units (unkn own) date) Self-Reported unknown) Symptoms (unknown) (no (unknown) (unknown) [id number] (units (unkno wn) date) unknown) (unknown) (no (unknown) (unknown) 325 mg tablet (units ( unknown) date) unknown) (unknown) (no (unknown) (unknown) ALT 11 IU/L (<35) (units (unknown) date) 03/07/22 14:03 unknown) (unknown) (no (unknown) (unknown) AST 18 IU/L (units (u nknown) date) (14-36) 03/07/22 unknown) 14:03 (unknown) (no (unknown) (unknown) Age/Sex: 76 / F (units (unknown) date) unknown) (unknown) (no (unknown) (unknown) Albumin 3.8 g/dL (units (unknown) date) (3.5-5.0) unknown) 03/07/22 14:03 (unknown) (no (unknown) (unknown) Albumin (PEP) 3.6 (units (unknown) date) g/dL (2.9-4.4) unknown) 08/17/21 12:33 (unknown) (no (unknown) (unknown) Albumin/Globulin (units (unknown) date) (PEP) 1.3 unknown) (0.7-1.7) 08/17/21 12:33 (unknown) (no (unknown) (unknown) Albumin/Globulin (units (unknown) date) Ratio 1.4 unknown) (1.0-2.8) 03/07/22 14:03 (unknown) (no (unknown) (unknown) Alkaline (units (unkno wn) date) Phosphatase 63 U/L unknown) (38-126) 03/07/22 14:03 (unknown) (no (unknown) (unknown) Allergy/AdvReac (units (unknown) date) Type Severity unknown) Reaction Status Date / Time (unknown) (no (unknown) (unknown) [id number] (units (unknown) date) 0.3 g/dL (0.0-0.4) unknown) 08/17/21 12:33 (unknown) (no (unknown) (unknown) Uwzls-0-Jenqqhgqg (units (unknown) date) 0.6 g/dL (0.4-1.0) unknown) 08/17/21 12:33 (unknown) (no (unknown) (unknown) Assessment and (units (unknown) date) Plan unknown) (unknown) (no (unknown) (unknown) BUN 16 mg/dL (units ( unknown) date) (7-17) 03/07/22 unknown) 14:03 (unknown) (no (unknown) (unknown) BUN/Creatinine (units (unknown) date) Ratio 22.9 (6-22) unknown) H 03/07/22 14:03 (unknown) (no (unknown) (unknown) Baso # (Auto) 0 (units (unknown) date) /uL (0-100) unknown) 03/07/22 14:03 (unknown) (no (unknown) (unknown) Baso % (Auto) 0.2 (units (unknown) date) % (0-2) 03/07/22 unknown) 14:03 (unknown) (no (unknown) (unknown) Beta Globulins (units (unknown) date) 1.0 g/dL (0.7-1.3) unknown) 08/17/21 12:33 (unknown) (no (unknown) (unknown) Calcium 8.6 mg/dL (units (unknown) date) (8.4-10.2) unknown) 03/07/22 14:03 (unknown) (no (unknown) (unknown) Carbon Dioxide 32 (units (unknown) date) mmol/L (22-32) unknown) 03/07/22 14:03 (unknown) (no (unknown) (unknown) Sonya is doing (units (unknown) date) well. She was unknown) recently hospitalized for dizziness episodes. She (unknown) (no (unknown) (unknown) Chief Complaint: (units (unknown) date) f/u anemia unknown) (unknown) (no (unknown) (unknown) Chloride 95 (units (u nknown) date) mmol/L (98-107) L unknown) 03/07/22 14:03 (unknown) (no (unknown) (unknown) Creatinine 0.70 (units (unknown) date) mg/dL (0.52-1.04) unknown) 03/07/22 14:03 (unknown) (no (unknown) (unknown) : 1945 (units (unknown) date) Acct:[id number] unknown) (unknown) (no (unknown) (unknown) Date of visit: (units (unknown) date) 03/08/22 unknown) (unknown) (no (unknown) (unknown) ESR 17 MM/HR (units ( unknown) date) (0-20) 08/17/21 unknown) 12:33 (unknown) (no (unknown) (unknown) Elderly female on (units (unknown) date) oxygen nasal unknown) cannula sitting in a wheelchair. (unknown) (no (unknown) (unknown) Eos # (Auto) 0 (units (unknown) date) /uL (0-450) unknown) 03/07/22 14:03 (unknown) (no (unknown) (unknown) Eos % (Auto) 0.0 (units (unknown) date) % (2-4) L unknown) 03/07/22 14:03 (unknown) (no (unknown) (unknown) Estimated GFR > (units (unknown) date) 60 mL/min (>60) unknown) 03/07/22 14:03 (unknown) (no (unknown) (unknown) Exam (units (unkno wn) date) unknown) (unknown) (no (unknown) (unknown) Ferritin 23 ng/mL (units (unknown) date) (11-264) 08/17/21 unknown) 12:33 (unknown) (no (unknown) (unknown) Folate 7.5 ng/mL (units (unknown) date) (2.76-20.0) unknown) 08/17/21 12:33 (unknown) (no (unknown) (unknown) Gamma Glob/Tot (units (unknown) date) Protein 2.7 g/dL unknown) (2.2-3.9) 08/17/21 12:33 (unknown) (no (unknown) (unknown) Gamma Globulins (units (unknown) date) 0.8 g/dL (0.4-1.8) unknown) 08/17/21 12:33 (unknown) (no (unknown) (unknown) GenericComposite[P (units (unknown) date) lt Count 375 unknown) X10^3/uL (150-400) 03/07/22 14:03 ] (unknown) (no (unknown) (unknown) GenericComposite[R (units (unknown) date) BC 3.58 X10^6/uL unknown) (4.0-5.2) L 03/07/22 14:03 ] (unknown) (no (unknown) (unknown) GenericComposite[W (units (unknown) date) BC 9.5 X10^3/uL unknown) (4.5-11.0) 03/07/22 14:03 ] (unknown) (no (unknown) (unknown) Globulin 2.7 g/dL (units (unknown) date) (1.7-4.1) unknown) 03/07/22 14:03 (unknown) (no (unknown) (unknown) Glucose 122 mg/dL (units (unknown) date) (80-110) H unknown) 03/07/22 14:03 (unknown) (no (unknown) (unknown) Hct 32.7 % (units (un known) date) (36-46) L unknown) 03/07/22 14:03 (unknown) (no (unknown) (unknown) Hgb 10.7 g/dL (units (unknown) date) (12.0-16.0) L unknown) 03/07/22 14:03 (unknown) (no (unknown) (unknown) History (units (unkno wn) date) unknown) (unknown) (no (unknown) (unknown) Home Medications (units (unknown) date) and Allergies unknown) (unknown) (no (unknown) (unknown) TIFFANY Interpretation (units (unknown) date) Comment (.) unknown) 08/17/21 12:33 (unknown) (no (unknown) (unknown) IgA 305 (units (unkno wn) date) 08/17/21 12:33 unknown) (unknown) (no (unknown) (unknown) IgG 867 (units (unkno wn) date) 08/17/21 12:33 unknown) (unknown) (no (unknown) (unknown) IgM 68 08/17/21 (units (unknown) date) 12:33 unknown) (unknown) (no (unknown) (unknown) Interval history: (units (unknown) date) unknown) (unknown) (no (unknown) (unknown) Iron 61 ug/dL (units (unknown) date) (37-170) 08/17/21 unknown) 12:33 (unknown) (no (unknown) (unknown) Lactate (units (unkno wn) date) Dehydrogenase 452 unknown) U/L (313-618) 08/17/21 12:33 (unknown) (no (unknown) (unknown) Lymph # (Auto) (units (unknown) date) 400 /uL (1372-6431) unknown) L 03/07/22 14:03 (unknown) (no (unknown) (unknown) Lymph % (Auto) (units (unknown) date) 4.5 % (25-40) L unknown) 03/07/22 14:03 (unknown) (no (unknown) (unknown) M-Zane Not (units (u nknown) date) observed g/dL (Not unknown) Observed) 08/17/21 12:33 (unknown) (no (unknown) (unknown) MCH 29.9 PG (units (u nknown) date) (26-34) 03/07/22 unknown) 14:03 (unknown) (no (unknown) (unknown) MCHC 32.7 % (units (u nknown) date) (30-36) 03/07/22 unknown) 14:03 (unknown) (no (unknown) (unknown) MCV 91.5 fL (units (u nknown) date) (80-100) 03/07/22 unknown) 14:03 (unknown) (no (unknown) (unknown) Hardin # (Auto) 500 (units (unknown) date) /uL (0-900) unknown) 03/07/22 14:03 (unknown) (no (unknown) (unknown) Hardin % (Auto) 4.9 (units (unknown) date) % (3-14) 03/07/22 unknown) 14:03 (unknown) (no (unknown) (unknown) Narrative: (units (unk nown) date) unknown) (unknown) (no (unknown) (unknown) Neut # (Auto) (units ( unknown) date) 8600 /uL unknown) (8309-2337) H 03/07/22 14:03 (unknown) (no (unknown) (unknown) Neut % (Auto) (units ( unknown) date) 90.4 % (50-75) H unknown) 03/07/22 14:03 (unknown) (no (unknown) (unknown) No Known Drug (units ( unknown) date) Allergies Allergy unknown) Verified 01/13/22 19:15 (unknown) (no (unknown) (unknown) PN -Subjective (units (unknown) date) unknown) (unknown) (no (unknown) (unknown) Patient: (units (unkno wn) date) Sonya Puckett unknown) MR#: [id number] (unknown) (no (unknown) (unknown) Plan (units (unkno wn) date) unknown) (unknown) (no (unknown) (unknown) Potassium 4.8 (units (unknown) date) mmol/L (3.4-5.1) unknown) 03/07/22 14:03 (unknown) (no (unknown) (unknown) Provider: (units (unkn own) date) Emmanuel Hawk MD unknown) (unknown) (no (unknown) (unknown) RDW 17.5 % (units (un known) date) (11.6-14.8) H unknown) 03/07/22 14:03 (unknown) (no (unknown) (unknown) Ref Lab Notation (units (unknown) date) Comment (.) unknown) 08/17/21 12:33 (unknown) (no (unknown) (unknown) Results (units (unkno wn) date) unknown) (unknown) (no (unknown) (unknown) Results of her lab (units (unknown) date) workup indicate no unknown) evidence of iron, B12 or folate (unknown) (no (unknown) (unknown) Return to clinic (units (unknown) date) in 6 months with unknown) repeat CBC (unknown) (no (unknown) (unknown) SR Cardiovascular (units (unknown) date) issues: Shortness unknown) of breath with activity or lying flat (unknown) (no (unknown) (unknown) SR Constitution: (units (unknown) date) Fatigue/Malaise unknown) (unknown) (no (unknown) (unknown) SR (units (unkno wn) date) Gastrointestinal unknown) issues: Diarrhea, Black/tarry stool, Abdominal pain (unknown) (no (unknown) (unknown) SR Musculoskeletal (units (unknown) date) issues: Muscle unknown) weakness, Back or neck pain, Difficulty (unknown) (no (unknown) (unknown) SR Neuro issues: (units (unknown) date) Lightheaded/dizzy, unknown) Tremors or shaking, Difficulty balancing (unknown) (no (unknown) (unknown) SR Skin issues: (units (unknown) date) Dry skin unknown) (unknown) (no (unknown) (unknown) SR ears, nose, (units (unknown) date) mouth, throat unknown) issues: Cough (unknown) (no (unknown) (unknown) SR eye issues: (units (unknown) date) Vision changes unknown) (unknown) (no (unknown) (unknown) SR respiratory (units (unknown) date) issues: Cough, unknown) Shortness of breath (unknown) (no (unknown) (unknown) Serum IgA 305 (units (unknown) date) mg/dL (64-422) unknown) 08/17/21 12:33 (unknown) (no (unknown) (unknown) Serum IgG 867 (units (unknown) date) mg/dL (586-1602) unknown) 08/17/21 12:33 (unknown) (no (unknown) (unknown) Serum IgM 68 (units ( unknown) date) mg/dL (26-217) unknown) 08/17/21 12:33 (unknown) (no (unknown) (unknown) Signed By: (units (unk nown) date) unknown) (unknown) (no (unknown) (unknown) Sodium 130 mmol/L (units (unknown) date) (137-145) L unknown) 03/07/22 14:03 (unknown) (no (unknown) (unknown) Status: Acute (units ( unknown) date) unknown) (unknown) (no (unknown) (unknown) Suspect anemia of (units (unknown) date) chronic disease unknown) (unknown) (no (unknown) (unknown) TIBC 284 ug/dL (units (unknown) date) (265-497) unknown) 08/17/21 12:33 (unknown) (no (unknown) (unknown) This very pleasant (units (unknown) date) 76-year-old female unknown) referred for evaluation of a normocytic (unknown) (no (unknown) (unknown) Total Bilirubin (units (unknown) date) 0.3 mg/dL (0.2-1.3) unknown) 03/07/22 14:03 (unknown) (no (unknown) (unknown) Total Protein 6.5 (units (unknown) date) g/dL (6.3-8.2) unknown) 03/07/22 14:03 (unknown) (no (unknown) (unknown) Total Protein (units ( unknown) date) (PEP) 6.3 g/dL unknown) (6.0-8.5) 08/17/21 12:33 (unknown) (no (unknown) (unknown) Transferrin 229 (units (unknown) date) mg/dL (206-381) unknown) 08/17/21 12:33 (unknown) (no (unknown) (unknown) Vital signs: (units (u nknown) date) unknown) (unknown) (no (unknown) (unknown) Vitamin B12 527 (units (unknown) date) pg/mL (239-931) unknown) 08/17/21 12:33 (unknown) (no (unknown) (unknown) aerosol inhaler (units (unknown) date) (ProAir HFA) unknown) (unknown) (no (unknown) (unknown) albuterol sulfate (units (unknown) date) 90 mcg/actuation 90 unknown) mcg INHALATION PRN PRN 05/22/21 01/13/22 (unknown) (no (unknown) (unknown) and likely (units (unk nown) date) reflects anemia of unknown) chronic disease. (unknown) (no (unknown) (unknown) anemia. She did (units (unknown) date) have recent blood unknown) in her stools and had a complete GI workup (unknown) (no (unknown) (unknown) atorvastatin 20 mg (units (unknown) date) tablet 20 mg PO unknown) DAILY 05/22/21 01/13/22 History (unknown) (no (unknown) (unknown) being referred for (units (unknown) date) further evaluation unknown) of her anemia and possible IV iron (unknown) (no (unknown) (unknown) capsule,extended (units (unknown) date) release 24 hr unknown) (unknown) (no (unknown) (unknown) carbidopa 25 (units (u nknown) date) mg-levodopa 100 mg unknown) 1 tab PO BEDTIME 09/07/21 01/13/22 History (unknown) (no (unknown) (unknown) carbidopa 25 (units (u nknown) date) mg-levodopa 100 mg unknown) 1 tab PO BID #60 tab 01/20/22 Rx (unknown) (no (unknown) (unknown) citalopram 20 mg (units (unknown) date) tablet 20 mg PO unknown) DAILY 05/22/21 01/13/22 History (unknown) (no (unknown) (unknown) cyclobenzaprine 10 (units (unknown) date) mg tablet mg unknown) 03/08/22 History (unknown) (no (unknown) (unknown) deficiency. There (units (unknown) date) is also no evidence unknown) of a monoclonal protein. Anemia has been (unknown) (no (unknown) (unknown) diltiazem HCl 120 (units (unknown) date) mg 120 mg PO DAILY unknown) 05/22/21 01/15/22 History (unknown) (no (unknown) (unknown) ferrous sulfate (units (unknown) date) 325 mg (65 mg 325 unknown) mg PO DAILY #30 tab 01/17/22 Rx (unknown) (no (unknown) (unknown) fluticasone 250 (units (unknown) date) mcg-salmeterol 50 1 unknown) inh INHALATION BID 09/07/21 01/13/22 History (unknown) (no (unknown) (unknown) fluticasone (units (un known) date) propionate 50 50 unknown) mcg INTRANASAL BID 05/22/21 01/13/22 History (unknown) (no (unknown) (unknown) gabapentin 300 mg (units (unknown) date) capsule 300 mg PO unknown) TID 05/22/21 01/13/22 History (unknown) (no (unknown) (unknown) has not had any (units (unknown) date) blood transfusions, unknown) infections, kidney damage or liver disease (unknown) (no (unknown) (unknown) hydrocodone 7.5 (units (unknown) date) mg-acetaminophen 1 unknown) tab PO Q4HR PRN 05/22/21 01/13/22 History (unknown) (no (unknown) (unknown) ibandronate 150 mg (units (unknown) date) tablet 150 mg PO unknown) USEASDIRECTD 05/22/21 01/13/22 History (unknown) (no (unknown) (unknown) including EGD and (units (unknown) date) colonoscopy which unknown) revealed 3 polyps however no evidence of (unknown) (no (unknown) (unknown) infusion. (units (unkn own) date) unknown) (unknown) (no (unknown) (unknown) inhalation (Advair (units (unknown) date) Diskus) unknown) (unknown) (no (unknown) (unknown) iron) tablet (units (u nknown) date) unknown) (unknown) (no (unknown) (unknown) levalbuterol HCl (units (unknown) date) 1.25 mg/3 mL 1.25 unknown) mg INHALATION QID 08/17/21 01/13/22 History (unknown) (no (unknown) (unknown) malignancy. She (units (unknown) date) was on Eliquis unknown) blood thinner for atrial fibrillation however (unknown) (no (unknown) (unknown) mcg/actuation (units ( unknown) date) nasal unknown) (unknown) (no (unknown) (unknown) mcg/dose blistr (units (unknown) date) powdr for unknown) (unknown) (no (unknown) (unknown) montelukast 10 mg (units (unknown) date) tablet 10 mg PO unknown) DAILY 05/22/21 01/13/22 History (unknown) (no (unknown) (unknown) prednisone 10 mg (units (unknown) date) tablet 10 mg PO unknown) DAILY #70 tab 01/17/22 Rx (unknown) (no (unknown) (unknown) sertraline 25 mg (units (unknown) date) tablet 25 mg PO unknown) DAILY 03/08/22 03/08/22 History (unknown) (no (unknown) (unknown) since she was last (units (unknown) date) here 6 months ago. unknown) Recall that her anemia workup was negative (unknown) (no (unknown) (unknown) solution for (units (u nknown) date) nebulization unknown) (unknown) (no (unknown) (unknown) spray,suspension (units (unknown) date) unknown) (unknown) (no (unknown) (unknown) stable for several (units (unknown) date) years now I suspect unknown) she has anemia of chronic disease. At (unknown) (no (unknown) (unknown) tablet (units (unkno wn) date) unknown) (unknown) (no (unknown) (unknown) this point in time (units (unknown) date) she does not unknown) qualify for erythropoietin injections and we (unknown) (no (unknown) (unknown) this was (units (unkno wn) date) discontinued after unknown) her bleeding was discovered. The patient is now (unknown) (no (unknown) (unknown) visit. (units (unkno wn) date) unknown) (unknown) (no (unknown) (unknown) walking (units (unkno wn) date) unknown) (unknown) (no (unknown) (unknown) will continue to (units (unknown) date) monitor her. unknown) However overall she has been quite stable and I (unknown) (no (unknown) (unknown) will see her back (units (unknown) date) in 6 months for unknown) follow-up. No changes since her last f/u Result panel 2 (unknown) (no (unknown) (unknown) (no value) (units (unk nown) date) unknown) (unknown) (no (unknown) (unknown) Date of Service: (units (unknown) date) 03/08/22 unknown) (unknown) (no (unknown) (unknown) (no value) (units (unk nown) date) unknown) (unknown) (no (unknown) (unknown) Allergies (units (unkn own) date) unknown) (unknown) (no (unknown) (unknown) Home Medications (units (unknown) date) unknown) (unknown) (no (unknown) (unknown) [facility] (units (unknown) date) [address] unknown) [place] [address] (unknown) (no (unknown) (unknown) Laboratory Last (units (unknown) date) Values unknown) (unknown) (no (unknown) (unknown) Oncology Progress (units (unknown) date) Note unknown) (unknown) (no (unknown) (unknown) Vital Signs (units (un known) date) unknown) (unknown) (no (unknown) (unknown) (no value) (units (unk nown) date) unknown) (unknown) (no (unknown) (unknown) Temp Pulse Resp BP (units (unknown) date) Pulse Ox unknown) (unknown) (no (unknown) (unknown) 03/08/22 10:08 (units (unknown) date) 97.7 F 96 H 16 unknown) 120/65 98 (unknown) (no (unknown) (unknown) Medication (units (unk nown) date) Instructions unknown) Recorded Confirmed Type (unknown) (no (unknown) (unknown) % Saturation 21 % (units (unknown) date) (15-50) 08/17/21 unknown) 12:33 (unknown) (no (unknown) (unknown) (1) Anemia (units (unk nown) date) unknown) (unknown) (no (unknown) (unknown) - Date of Visit (units (unknown) date) unknown) (unknown) (no (unknown) (unknown) - Labs (units (unkno wn) date) unknown) (unknown) (no (unknown) (unknown) - Patient (units (unkn own) date) Self-Reported unknown) Symptoms (unknown) (no (unknown) (unknown) [id number] (units (unkno wn) date) unknown) (unknown) (no (unknown) (unknown) 325 mg tablet (units ( unknown) date) unknown) (unknown) (no (unknown) (unknown) ALT 11 IU/L (<35) (units (unknown) date) 03/07/22 14:03 unknown) (unknown) (no (unknown) (unknown) AST 18 IU/L (units (u nknown) date) (14-36) 03/07/22 unknown) 14:03 (unknown) (no (unknown) (unknown) Age/Sex: 76 / F (units (unknown) date) unknown) (unknown) (no (unknown) (unknown) Albumin 3.8 g/dL (units (unknown) date) (3.5-5.0) unknown) 03/07/22 14:03 (unknown) (no (unknown) (unknown) Albumin (PEP) 3.6 (units (unknown) date) g/dL (2.9-4.4) unknown) 08/17/21 12:33 (unknown) (no (unknown) (unknown) Albumin/Globulin (units (unknown) date) (PEP) 1.3 unknown) (0.7-1.7) 08/17/21 12:33 (unknown) (no (unknown) (unknown) Albumin/Globulin (units (unknown) date) Ratio 1.4 unknown) (1.0-2.8) 03/07/22 14:03 (unknown) (no (unknown) (unknown) Alkaline (units (unkno wn) date) Phosphatase 63 U/L unknown) (38-126) 03/07/22 14:03 (unknown) (no (unknown) (unknown) Allergy/AdvReac (units (unknown) date) Type Severity unknown) Reaction Status Date / Time (unknown) (no (unknown) (unknown) Mfuie-5-Djmalteke (units (unknown) date) 0.3 g/dL (0.0-0.4) unknown) 08/17/21 12:33 (unknown) (no (unknown) (unknown) Noypd-0-Hcanhwtml (units (unknown) date) 0.6 g/dL (0.4-1.0) unknown) 08/17/21 12:33 (unknown) (no (unknown) (unknown) Assessment and (units (unknown) date) Plan unknown) (unknown) (no (unknown) (unknown) BUN 16 mg/dL (units ( unknown) date) (7-17) 03/07/22 unknown) 14:03 (unknown) (no (unknown) (unknown) BUN/Creatinine (units (unknown) date) Ratio 22.9 (6-22) unknown) H 03/07/22 14:03 (unknown) (no (unknown) (unknown) Baso # (Auto) 0 (units (unknown) date) /uL (0-100) unknown) 03/07/22 14:03 (unknown) (no (unknown) (unknown) Baso % (Auto) 0.2 (units (unknown) date) % (0-2) 03/07/22 unknown) 14:03 (unknown) (no (unknown) (unknown) Beta Globulins (units (unknown) date) 1.0 g/dL (0.7-1.3) unknown) 08/17/21 12:33 (unknown) (no (unknown) (unknown) Calcium 8.6 mg/dL (units (unknown) date) (8.4-10.2) unknown) 03/07/22 14:03 (unknown) (no (unknown) (unknown) Carbon Dioxide 32 (units (unknown) date) mmol/L (22-32) unknown) 03/07/22 14:03 (unknown) (no (unknown) (unknown) Sonya is doing (units (unknown) date) well. She was unknown) recently hospitalized for dizziness episodes. She (unknown) (no (unknown) (unknown) Chief Complaint: (units (unknown) date) f/u anemia unknown) (unknown) (no (unknown) (unknown) Chloride 95 (units (u nknown) date) mmol/L (98-107) L unknown) 03/07/22 14:03 (unknown) (no (unknown) (unknown) Creatinine 0.70 (units (unknown) date) mg/dL (0.52-1.04) unknown) 03/07/22 14:03 (unknown) (no (unknown) (unknown) : 1945 (units (unknown) date) Acct:[id number] unknown) (unknown) (no (unknown) (unknown) Date of visit: (units (unknown) date) 03/08/22 unknown) (unknown) (no (unknown) (unknown) ESR 17 MM/HR (units ( unknown) date) (0-20) 08/17/21 unknown) 12:33 (unknown) (no (unknown) (unknown) Elderly female on (units (unknown) date) oxygen nasal unknown) cannula sitting in a wheelchair. (unknown) (no (unknown) (unknown) Eos # (Auto) 0 (units (unknown) date) /uL (0-450) unknown) 03/07/22 14:03 (unknown) (no (unknown) (unknown) Eos % (Auto) 0.0 (units (unknown) date) % (2-4) L unknown) 03/07/22 14:03 (unknown) (no (unknown) (unknown) Estimated GFR > (units (unknown) date) 60 mL/min (>60) unknown) 03/07/22 14:03 (unknown) (no (unknown) (unknown) Exam (units (unkno wn) date) unknown) (unknown) (no (unknown) (unknown) Ferritin 23 ng/mL (units (unknown) date) (11-264) 08/17/21 unknown) 12:33 (unknown) (no (unknown) (unknown) Folate 7.5 ng/mL (units (unknown) date) (2.76-20.0) unknown) 08/17/21 12:33 (unknown) (no (unknown) (unknown) Gamma Glob/Tot (units (unknown) date) Protein 2.7 g/dL unknown) (2.2-3.9) 08/17/21 12:33 (unknown) (no (unknown) (unknown) Gamma Globulins (units (unknown) date) 0.8 g/dL (0.4-1.8) unknown) 08/17/21 12:33 (unknown) (no (unknown) (unknown) GenericComposite[P (units (unknown) date) lt Count 375 unknown) X10^3/uL (150-400) 03/07/22 14:03 ] (unknown) (no (unknown) (unknown) GenericComposite[R (units (unknown) date) BC 3.58 X10^6/uL unknown) (4.0-5.2) L 03/07/22 14:03 ] (unknown) (no (unknown) (unknown) GenericComposite[W (units (unknown) date) BC 9.5 X10^3/uL unknown) (4.5-11.0) 03/07/22 14:03 ] (unknown) (no (unknown) (unknown) Globulin 2.7 g/dL (units (unknown) date) (1.7-4.1) unknown) 03/07/22 14:03 (unknown) (no (unknown) (unknown) Glucose 122 mg/dL (units (unknown) date) (80-110) H unknown) 03/07/22 14:03 (unknown) (no (unknown) (unknown) Hct 32.7 % (units (un known) date) (36-46) L unknown) 03/07/22 14:03 (unknown) (no (unknown) (unknown) Hgb 10.7 g/dL (units (unknown) date) (12.0-16.0) L unknown) 03/07/22 14:03 (unknown) (no (unknown) (unknown) History (units (unkno wn) date) unknown) (unknown) (no (unknown) (unknown) Home Medications (units (unknown) date) and Allergies unknown) (unknown) (no (unknown) (unknown) TIFFANY Interpretation (units (unknown) date) Comment (.) unknown) 08/17/21 12:33 (unknown) (no (unknown) (unknown) IgA 305 (units (unkno wn) date) 08/17/21 12:33 unknown) (unknown) (no (unknown) (unknown) IgG 867 (units (unkno wn) date) 08/17/21 12:33 unknown) (unknown) (no (unknown) (unknown) IgM 68 08/17/21 (units (unknown) date) 12:33 unknown) (unknown) (no (unknown) (unknown) Interval history: (units (unknown) date) unknown) (unknown) (no (unknown) (unknown) Iron 61 ug/dL (units (unknown) date) (37-170) 08/17/21 unknown) 12:33 (unknown) (no (unknown) (unknown) Lactate (units (unkno wn) date) Dehydrogenase 452 unknown) U/L (313-618) 08/17/21 12:33 (unknown) (no (unknown) (unknown) Lymph # (Auto) (units (unknown) date) 400 /uL (0813-4490) unknown) L 03/07/22 14:03 (unknown) (no (unknown) (unknown) Lymph % (Auto) (units (unknown) date) 4.5 % (25-40) L unknown) 03/07/22 14:03 (unknown) (no (unknown) (unknown) M-Zane Not (units (u nknown) date) observed g/dL (Not unknown) Observed) 08/17/21 12:33 (unknown) (no (unknown) (unknown) MCH 29.9 PG (units (u nknown) date) (26-34) 03/07/22 unknown) 14:03 (unknown) (no (unknown) (unknown) MCHC 32.7 % (units (u nknown) date) (30-36) 03/07/22 unknown) 14:03 (unknown) (no (unknown) (unknown) MCV 91.5 fL (units (u nknown) date) (80-100) 03/07/22 unknown) 14:03 (unknown) (no (unknown) (unknown) [place]in # (Auto) 500 (units (unknown) date) /uL (0-900) unknown) 03/07/22 14:03 (unknown) (no (unknown) (unknown) [place] % (Auto) 4.9 (units (unknown) date) % (3-14) 03/07/22 unknown) 14:03 (unknown) (no (unknown) (unknown) Narrative: (units (unk nown) date) unknown) (unknown) (no (unknown) (unknown) Neut # (Auto) (units ( unknown) date) 8600 /uL unknown) (5779-6299) H 03/07/22 14:03 (unknown) (no (unknown) (unknown) Neut % (Auto) (units ( unknown) date) 90.4 % (50-75) H unknown) 03/07/22 14:03 (unknown) (no (unknown) (unknown) No Known Drug (units ( unknown) date) Allergies Allergy unknown) Verified 01/13/22 19:15 (unknown) (no (unknown) (unknown) PN -Subjective (units (unknown) date) unknown) (unknown) (no (unknown) (unknown) Patient: (units (unkno wn) date) HansSonya Yuliana unknown) MR#: [id number] (unknown) (no (unknown) (unknown) Plan (units (unkno wn) date) unknown) (unknown) (no (unknown) (unknown) Potassium 4.8 (units (unknown) date) mmol/L (3.4-5.1) unknown) 03/07/22 14:03 (unknown) (no (unknown) (unknown) Provider: (units (unkn own) date) Emmanuel Hawk MD unknown) (unknown) (no (unknown) (unknown) RDW 17.5 % (units (un known) date) (11.6-14.8) H unknown) 03/07/22 14:03 (unknown) (no (unknown) (unknown) Ref Lab Notation (units (unknown) date) Comment (.) unknown) 08/17/21 12:33 (unknown) (no (unknown) (unknown) Results (units (unkno wn) date) unknown) (unknown) (no (unknown) (unknown) Results of her lab (units (unknown) date) workup indicate no unknown) evidence of iron, B12 or folate (unknown) (no (unknown) (unknown) Return to clinic (units (unknown) date) in 6 months with unknown) repeat CBC (unknown) (no (unknown) (unknown) SR Cardiovascular (units (unknown) date) issues: Shortness unknown) of breath with activity or lying flat (unknown) (no (unknown) (unknown) SR Constitution: (units (unknown) date) Fatigue/Malaise unknown) (unknown) (no (unknown) (unknown) SR (units (unkno wn) date) Gastrointestinal unknown) issues: Diarrhea, Black/tarry stool, Abdominal pain (unknown) (no (unknown) (unknown) SR Musculoskeletal (units (unknown) date) issues: Muscle unknown) weakness, Back or neck pain, Difficulty (unknown) (no (unknown) (unknown) SR Neuro issues: (units (unknown) date) Lightheaded/dizzy, unknown) Tremors or shaking, Difficulty balancing (unknown) (no (unknown) (unknown) SR Skin issues: (units (unknown) date) Dry skin unknown) (unknown) (no (unknown) (unknown) SR ears, nose, (units (unknown) date) mouth, throat unknown) issues: Cough (unknown) (no (unknown) (unknown) SR eye issues: (units (unknown) date) Vision changes unknown) (unknown) (no (unknown) (unknown) SR respiratory (units (unknown) date) issues: Cough, unknown) Shortness of breath (unknown) (no (unknown) (unknown) Serum IgA 305 (units (unknown) date) mg/dL (64-422) unknown) 08/17/21 12:33 (unknown) (no (unknown) (unknown) Serum IgG 867 (units (unknown) date) mg/dL (586-1602) unknown) 08/17/21 12:33 (unknown) (no (unknown) (unknown) Serum IgM 68 (units ( unknown) date) mg/dL (26-217) unknown) 08/17/21 12:33 (unknown) (no (unknown) (unknown) Signed (units (unkno wn) date) By:<Electronically unknown) signed by Emmanuel Hawk MD>03/09/22 0812 (unknown) (no (unknown) (unknown) Sodium 130 mmol/L (units (unknown) date) (137-145) L unknown) 03/07/22 14:03 (unknown) (no (unknown) (unknown) Status: Acute (units ( unknown) date) unknown) (unknown) (no (unknown) (unknown) Suspect anemia of (units (unknown) date) chronic disease unknown) (unknown) (no (unknown) (unknown) TIBC 284 ug/dL (units (unknown) date) (265-497) unknown) 08/17/21 12:33 (unknown) (no (unknown) (unknown) This very pleasant (units (unknown) date) 76-year-old female unknown) referred for evaluation of a normocytic (unknown) (no (unknown) (unknown) Total Bilirubin (units (unknown) date) 0.3 mg/dL (0.2-1.3) unknown) 03/07/22 14:03 (unknown) (no (unknown) (unknown) Total Protein 6.5 (units (unknown) date) g/dL (6.3-8.2) unknown) 03/07/22 14:03 (unknown) (no (unknown) (unknown) Total Protein (units ( unknown) date) (PEP) 6.3 g/dL unknown) (6.0-8.5) 08/17/21 12:33 (unknown) (no (unknown) (unknown) Transferrin 229 (units (unknown) date) mg/dL (206-381) unknown) 08/17/21 12:33 (unknown) (no (unknown) (unknown) Vital signs: (units (u nknown) date) unknown) (unknown) (no (unknown) (unknown) Vitamin B12 527 (units (unknown) date) pg/mL (239-931) unknown) 08/17/21 12:33 (unknown) (no (unknown) (unknown) aerosol inhaler (units (unknown) date) (ProAir HFA) unknown) (unknown) (no (unknown) (unknown) albuterol sulfate (units (unknown) date) 90 mcg/actuation 90 unknown) mcg INHALATION PRN PRN 05/22/21 01/13/22 (unknown) (no (unknown) (unknown) and likely (units (unk nown) date) reflects anemia of unknown) chronic disease. (unknown) (no (unknown) (unknown) anemia. She did (units (unknown) date) have recent blood unknown) in her stools and had a complete GI workup (unknown) (no (unknown) (unknown) atorvastatin 20 mg (units (unknown) date) tablet 20 mg PO unknown) DAILY 05/22/21 01/13/22 History (unknown) (no (unknown) (unknown) being referred for (units (unknown) date) further evaluation unknown) of her anemia and possible IV iron (unknown) (no (unknown) (unknown) capsule,extended (units (unknown) date) release 24 hr unknown) (unknown) (no (unknown) (unknown) carbidopa 25 (units (u nknown) date) mg-levodopa 100 mg unknown) 1 tab PO BEDTIME 09/07/21 01/13/22 History (unknown) (no (unknown) (unknown) carbidopa 25 (units (u nknown) date) mg-levodopa 100 mg unknown) 1 tab PO BID #60 tab 01/20/22 Rx (unknown) (no (unknown) (unknown) citalopram 20 mg (units (unknown) date) tablet 20 mg PO unknown) DAILY 05/22/21 01/13/22 History (unknown) (no (unknown) (unknown) cyclobenzaprine 10 (units (unknown) date) mg tablet mg unknown) 03/08/22 History (unknown) (no (unknown) (unknown) deficiency. There (units (unknown) date) is also no evidence unknown) of a monoclonal protein. Anemia has been (unknown) (no (unknown) (unknown) diltiazem HCl 120 (units (unknown) date) mg 120 mg PO DAILY unknown) 05/22/21 01/15/22 History (unknown) (no (unknown) (unknown) ferrous sulfate (units (unknown) date) 325 mg (65 mg 325 unknown) mg PO DAILY #30 tab 01/17/22 Rx (unknown) (no (unknown) (unknown) fluticasone 250 (units (unknown) date) mcg-salmeterol 50 1 unknown) inh INHALATION BID 09/07/21 01/13/22 History (unknown) (no (unknown) (unknown) fluticasone (units (un known) date) propionate 50 50 unknown) mcg INTRANASAL BID 05/22/21 01/13/22 History (unknown) (no (unknown) (unknown) gabapentin 300 mg (units (unknown) date) capsule 300 mg PO unknown) TID 05/22/21 01/13/22 History (unknown) (no (unknown) (unknown) has not had any (units (unknown) date) blood transfusions, unknown) infections, kidney damage or liver disease (unknown) (no (unknown) (unknown) hydrocodone 7.5 (units (unknown) date) mg-acetaminophen 1 unknown) tab PO Q4HR PRN 05/22/21 01/13/22 History (unknown) (no (unknown) (unknown) ibandronate 150 mg (units (unknown) date) tablet 150 mg PO unknown) USEASDIRECTD 05/22/21 01/13/22 History (unknown) (no (unknown) (unknown) including EGD and (units (unknown) date) colonoscopy which unknown) revealed 3 polyps however no evidence of (unknown) (no (unknown) (unknown) infusion. (units (unkn own) date) unknown) (unknown) (no (unknown) (unknown) inhalation (Advair (units (unknown) date) Diskus) unknown) (unknown) (no (unknown) (unknown) iron) tablet (units (u nknown) date) unknown) (unknown) (no (unknown) (unknown) levalbuterol HCl (units (unknown) date) 1.25 mg/3 mL 1.25 unknown) mg INHALATION QID 08/17/21 01/13/22 History (unknown) (no (unknown) (unknown) malignancy. She (units (unknown) date) was on Eliquis unknown) blood thinner for atrial fibrillation however (unknown) (no (unknown) (unknown) mcg/actuation (units ( unknown) date) nasal unknown) (unknown) (no (unknown) (unknown) mcg/dose blistr (units (unknown) date) powdr for unknown) (unknown) (no (unknown) (unknown) montelukast 10 mg (units (unknown) date) tablet 10 mg PO unknown) DAILY 05/22/21 01/13/22 History (unknown) (no (unknown) (unknown) prednisone 10 mg (units (unknown) date) tablet 10 mg PO unknown) DAILY #70 tab 01/17/22 Rx (unknown) (no (unknown) (unknown) sertraline 25 mg (units (unknown) date) tablet 25 mg PO unknown) DAILY 03/08/22 03/08/22 History (unknown) (no (unknown) (unknown) since she was last (units (unknown) date) here 6 months ago. unknown) Recall that her anemia workup was negative (unknown) (no (unknown) (unknown) solution for (units (u nknown) date) nebulization unknown) (unknown) (no (unknown) (unknown) spray,suspension (units (unknown) date) unknown) (unknown) (no (unknown) (unknown) stable for several (units (unknown) date) years now I suspect unknown) she has anemia of chronic disease. At (unknown) (no (unknown) (unknown) tablet (units (unkno wn) date) unknown) (unknown) (no (unknown) (unknown) this point in time (units (unknown) date) she does not unknown) qualify for erythropoietin injections and we (unknown) (no (unknown) (unknown) this was (units (unkno wn) date) discontinued after unknown) her bleeding was discovered. The patient is now (unknown) (no (unknown) (unknown) visit. (units (unkno wn) date) unknown) (unknown) (no (unknown) (unknown) walking (units (unkno wn) date) unknown) (unknown) (no (unknown) (unknown) will continue to (units (unknown) date) monitor her. unknown) However overall she has been quite stable and I (unknown) (no (unknown) (unknown) will see her back (units (unknown) date) in 6 months for unknown) follow-up. No changes since her last f/u Social History No information. Vital Signs No information.
--- NOTE | 2022-05-05 12:13 | ED Physician Documentation ---
PD HPI DYSPNEA - Stated complaint Stated Complaint: SOA - Chief complaint Chief Complaint: Resp - History obtained from History obtained from: Patient, EMS - Additional information Additional information: This is a 77-year-old woman with history of A. fib, remote stroke, kidney stones and COPD who presents for the evaluation of edema. She actually had not noticed the edema, is her caregiver that noticed that and referred her here. Patient does note 1 weeks worth of shortness of breath with orthopnea. She denies cough or chest pain. For the last few months she notes decreased urination, only once or twice a day. She has no history of kidney failure. No history of heart failure. Review of Systems Ten Systems: 10 systems reviewed and negative Constitutional: denies: Fever Nose: denies: Rhinorrhea / runny nose Cardiac: denies: Chest pain / pressure, Palpitations Respiratory: reports: Dyspnea. denies: Cough PD PAST MEDICAL HISTORY - Past Medical History Cardiovascular: Hypertension Respiratory: COPD, Pneumonia, Shortness of breath Neuro: CVA Endocrine/Autoimmune: None GI: None SPRING MAKER: None : Renal insuffiency HEENT: None Psych: None Musculoskeletal: None Derm: None - Past Surgical History Past Surgical History: Yes Ortho: Hip replacement, Other - Present Medications Home Medications: Ambulatory Orders Medication Instructions Recorded Confirmed Ascorbic Acid [Vitamin C] 500 mg PO DAILY 01/13/14 04/10/19 Aspirin EC [Ecotrin] 325 mg PO DAILY 01/13/14 04/10/19 Cholecalciferol (Vitamin D3) 1,000 unit PO DAILY 01/13/14 04/10/19 [Vitamin D3] Citalopram [CeleXA] 20 mg PO DAILY 01/13/14 04/10/19 Cyanocobalamin (Vitamin B-12) 1,000 mcg PO Q7D 01/13/14 04/10/19 [Vitamin B-12] Flaxseed Oil 1,000 mg PO DAILY 01/13/14 04/10/19 Fluticasone [Flonase] 1 sprays MIO DAILY 01/13/14 04/10/19 Gabapentin [Neurontin] 300 mg PO TID 01/13/14 04/10/19 Levalbuterol [Xopenex] 1.25 mg INH DAILY 01/13/14 04/10/19 Montelukast Sodium [Singulair] 10 mg PO DAILY 01/13/14 04/10/19 NIFEdipine [Procardia Xl] 30 mg PO DAILY 01/13/14 04/10/19 [place]-3/Dha/Epa/Fish Oil [Fish Oil 1,000 mg PO DAILY 01/13/14 04/10/19 Dr 500 mg Softgel] Cyanocobalamin (Vitamin B-12) 1,000 mcg PO DAILY 02/19/15 04/10/19 [Vitamin B-12] Iron Polysaccharide Complex 150 mg PO DAILY 02/19/15 04/10/19 [Polysaccharide Iron 150] Albuterol Sulfate [Proair 2 puffs INH Q4H PRN 04/10/19 04/10/19 Respiclick] Atorvastatin Calcium [Lipitor] 40 mg PO DAILY #10 tablet 04/10/19 Fluticasone/Salmeterol [Advair 1 puffs INH BID 04/10/19 04/10/19 250-50 Diskus] Ibandronate Sodium [Boniva] 150 mg PO .MONTHLY 04/10/19 04/10/19 cephALEXin [Keflex] 500 mg PO Q6H #28 capsule 06/01/19 Furosemide [Lasix] 20 mg PO DAILY #7 tablet 05/05/22 Potassium Chloride [Klor-Con 10] 10 meq PO DAILY #7 tab 05/05/22 - Allergies Allergies/Adverse Reactions: Allergies Allergy/AdvReac Type Severity Reaction Status Date / Time No Known Drug Allergies Allergy Verified 06/01/19 20:09 - Social History Does the pt smoke?: No Smoking Status: Never smoker Does the pt drink ETOH?: Yes Does the pt have substance abuse?: No - Immunizations Immunizations are current?: Yes - POLST Patient has POLST: No PD ED PE NORMAL - Vitals Vital signs reviewed: Yes - General General: Alert and oriented X 3, No acute distress - HEENT HEENT: PERRL, EOMI - Neck Neck: Supple, no meningeal sign, No bony TTP - Cardiac Cardiac: Other (Irregularly irregular without murmur) - Respiratory Respiratory: Other (Quite diminished at the bases with squeaky expiratory wheezes, nonlabored) - Abdomen Abdomen: Soft, Non tender - Back Back: No CVA TTP, No spinal TTP - Derm Derm: Normal color, Warm and dry - Extremities Extremities: Other (2+ pitting pedal edema of the ankles up to the knee) - Neuro Neuro: Alert and oriented X 3, Normal speech Results - Vitals Vitals: Vital Signs - 24 hr 05/05/22 12:07 Temperature 36.5 C Heart Rate 103 H Respiratory 24 Rate Blood Pressure 131/80 H O2 Saturation 99 Oxygen O2 Source [With Activity] Nasal cannula O2 Source Nasal cannula - EKG (time done) 1254 Rate: Rate (enter#) (106) Rhythm: Atrial fibrillation [place]: Normal Ischemia: Q waves (inferior/v1-3). No: ST elevation c/w ischemia, ST depression - Labs Labs: Laboratory Tests 05/05/22 05/05/22 05/05/22 12:18 12:18 12:18 WBC 8.3 RBC 3.54 L Hgb 10.7 L Hct 35.2 L MCV 99.4 H MCH 30.2 MCHC 30.4 L RDW 14.2 Plt Count 294 MPV 10.1 Neut # (Auto) 5.9 Lymph # (Auto) 1.3 L [place] # (Auto) 0.9 Eos # (Auto) 0.1 Baso # (Auto) 0.0 Absolute Nucleated RBC 0.00 Nucleated RBC % 0.0 Sodium 138 Potassium 4.2 Chloride 98 L Carbon Dioxide 33 H Anion Gap 7.0 BUN 10 Creatinine 0.5 Estimated GFR (MDRD) 119 Glucose 97 Calcium 8.7 Phosphorus 3.5 Magnesium 2.1 Total Bilirubin 0.6 AST 11 ALT < 10 L Alkaline Phosphatase 53 B-Natriuretic Peptide 311 H Total Protein 6.1 L Albumin 3.2 Globulin 2.9 Albumin/Globulin Ratio 1.1 PD MEDICAL DECISION MAKING - ED course ED course: 77-year-old woman presents with pedal edema. She has some dyspnea with it. Her BNP is modestly elevated but without significant signs of fluid overload on chest x-ray. She is certainly not an extremis. Her renal function is good. We will start her on furosemide and a potassium supplement pending primary care follow-up. The patient and family were counseled as to the diagnosis and need for follow- up. I counseled the patient with regard to signs and symptoms that would necessitate an urgent reevaluation in the emergency department. They understand they are welcome to return at any time if worse or if not improving as expected. This document was made in part using voice recognition software. While efforts are made to proofread this documents, sound alike and grammatical errors may occur. Departure - Departure Disposition: 01 Home, Self Care Clinical Impression: Congestive heart failure Qualifiers: Heart failure type: unspecified Heart failure chronicity: acute Qualified Code(s): I50.9 - Heart failure, unspecified Condition: Good Record reviewed to determine appropriate education?: Yes Instructions: ED CHF General Prescriptions: Potassium Chloride [Klor-Con 10] 10 meq PO DAILY #7 tab Furosemide [Lasix] 20 mg PO DAILY #7 tablet Comments: You are seen today because you noticed some swelling and you do have evidence of mild congestive heart failure. Right now we are treating this with a diuretic known as furosemide, another common name for the same drug is Lasix. This medication leeches potassium out of your system and therefore I am also prescribing a potassium supplement for you to take. Anytime you take the diuretic you should also take the potassium supplement. You will need to follow-up with your primary care physician, next available appointment. This should be within the week. Call today for an appointment. Return for new or worsening symptoms. I sent your prescription electronically to [facility] in [place].
[2022-05-05 12:23] LABS: BASOPHILS % (AUTO) 0.5 %; EOSINOPHILS # (AUTO) 0.1 10^3/uL (0.0-0.7); EOSINOPHILS % (AUTO) 1.7 %; HCT - HEMATOCRIT 35.2 % (37.0-47.0); HGB - HEMOGLOBIN 10.7 g/dL (12.0-16.0); LYMPHOCYTES # (AUTO) 1.3 10^3/uL (1.5-3.5); LYMPHOCYTES % (AUTO) 15.8 %; MEAN CORPUSCULAR HEMOGLOBIN 30.2 pg (27.0-31.0); MEAN CORPUSCULAR HGB CONC 30.4 g/dL (32.0-36.0); MEAN CORPUSCULAR VOLUME 99.4 fL (81.0-99.0); MEAN PLATELET VOLUME 10.1 fL (7.9-10.8); MONOCYTES # (AUTO) 0.9 10^3/uL (0.0-1.0); MONOCYTES % (AUTO) 10.7 %; NEUTROPHILS # (AUTO) 5.9 10^3/uL (1.5-6.6); NEUTROPHILS % (AUTO) 70.6 %; PLT - PLATELET COUNT 294 10^3/uL (130-450); RED BLOOD COUNT 3.54 10^6/uL (4.20-5.40); RED CELL DISTRIBUTION WIDTH 14.2 % (12.0-15.0); WHITE BLOOD COUNT 8.3 x10^3/uL (4.8-10.8)
[2022-05-05 12:36] LABS: ALBUMIN 3.2 g/dL (3.2-5.5); ALBUMIN/GLOBULIN RATIO 1.1 (1.0-2.2); ALKALINE PHOSPHATASE 53 IU/L (42-121); ALT ALANINE AMINOTRANSFERASE < 10 IU/L (10-60); AST ASPARTATE AMINOTRANSFERASE 11 IU/L (10-42); BILIRUBIN,TOTAL 0.6 mg/dL (0.2-1.0); BUN - BLOOD UREA NITROGEN 10 mg/dL (6-20); CALCIUM 8.7 mg/dL (8.5-10.3); CARBON DIOXIDE - CO2 33 mmol/L (21-32); CHLORIDE 98 mmol/L (101-111); CREATININE 0.5 mg/dL (0.4-1.0); GFR - MDRD 119 (>89); GLUCOSE 97 mg/dL (70-100); MAGNESIUM 2.1 mg/dL (1.7-2.8); PHOSPHORUS 3.5 mg/dL (2.5-4.6); POTASSIUM 4.2 mmol/L (3.5-5.0); SODIUM 138 mmol/L (135-145); TOTAL PROTEIN 6.1 g/dL (6.7-8.2)
--- NOTE | 2022-05-05 12:39 | XRAY Report ---
PROCEDURE: Chest 1 View X-Ray INDICATIONS: dyspnea TECHNIQUE: One view of the chest was acquired. COMPARISON: 04/20/2021 CT of chest dated 04/11/2022. FINDINGS: Surgical changes and devices: None. Lungs and pleura: No pleural effusions or pneumothorax. Chronic emphysematous changes are noted. Chr onic appearing scarring/atelectasis in right upper lung field is also seen. No definite focal infiltr ate. Mediastinum: Mildly tortuous thoracic aorta is seen. Heart size is enlarged. Bones and chest wall: No suspicious bony lesions. Overlying soft tissues appear unremarkable. IMPRESSION: COPD and chronic appearing right upper lobe scarring/atelectasis. No definite focal infiltrate. No pl eural effusion or pneumothorax. Reviewed by: Vin Munoz MD on 05/05/2022 12:38 PM PDT Approved by: Vin Munoz MD on 05/05/2022 12:38 PM PDT Station ID: [id number]
[2022-05-05] MEDS ORDERED: POTASSIUM CHLORIDE 20 MEQ TABLET PO STA (12:53)
[2022-05-05] MEDS ORDERED: FUROSEMIDE 20 MG TABLET PO STA (12:53)
[2022-05-05 13:37] VITALS: BP 107/96
== END 2022-05-05 13:36 | disposition home or self-care (01) ==
LOC: EDUNIT# → ED 11:54
DX: I50.9 Heart failure, unspecified (principal)
CPT/HCPCS: 36415; 71045; 80053; 83735; 83880; 84100; 85025; 93005; 99284; A9270

== ENCOUNTER 2022-05-12 10:26 | Outpatient (CLI) | payer MEDICARE, OTHER ==
[2022-05-12 10:50] LABS: CALCIUM 9.2 mg/dL (8.5-10.3); CREATININE 0.7 mg/dL (0.4-1.0); POTASSIUM 4.3 mmol/L (3.5-5.0)
== END 2022-05-12 10:27 | disposition home or self-care (01) ==
LOC: LAB 10:26
PROVIDERS: ATTEND Internal Medicine
DX: I11.0 Hypertensive heart disease with heart failure (principal); I50.89 Other heart failure
CPT/HCPCS: 36415; 80048

== ENCOUNTER 2022-05-12 10:44 | Outpatient (CLI) | payer MEDICARE, OTHER ==
--- NOTE | 2022-05-12 11:50 | XRAY Report ---
PROCEDURE: Hip w/Pelvis 2-3V LT INDICATIONS: RA TECHNIQUE: AP pelvis with lateral view(s) of the left hip(s). COMPARISON: None. FINDINGS: Bones: Total left hip arthroplasty. The left hip prosthesis is in anatomic alignment. The surgical h ardware are intact. No fractures or dislocations. Pelvic ring appears intact. No suspicious bony le sions. Mild right hip joint degeneration. [id number] degenerative disc and facet disease in the lower lumbar spine. Soft tissues: The visualized bowel gas pattern is normal. No suspicious soft tissue calcifications. IMPRESSION: 1. Expected postsurgical changes related to left total hip arthroplasty. No fracture or dislocation. 2. Mild right hip joint degeneration. 3. Moderate-to severe degenerative disc and facet disease in the lower lumbar spine.. Reviewed by: Anjum Fletcher MD on 05/12/2022 11:48 AM PDT Approved by: Anjum Fletcher MD on 05/12/2022 11:48 AM PDT Station ID: [id number]
== END 2022-05-12 10:45 | disposition home or self-care (01) ==
LOC: DI 10:44
PROVIDERS: ATTEND Internal Medicine
DX: M06.9 Rheumatoid arthritis, unspecified (principal); Z96.642 Presence of left artificial hip joint; M16.11 Unilateral primary osteoarthritis, right hip; M47.816 Spondylosis without myelopathy or radiculopathy, lumbar region; M51.36 Other intervertebral disc degeneration, lumbar region; I10 Essential (primary) hypertension; I50.89 Other heart failure
CPT/HCPCS: 36415; 80048

== ENCOUNTER 2022-07-28 08:35 | Outpatient (CLI) | payer MEDICARE, OTHER ==
[2022-07-28 09:01] LABS: CALCIUM 8.8 mg/dL (8.5-10.3); CREATININE 0.8 mg/dL (0.4-1.0); POTASSIUM 3.3 mmol/L (3.5-5.0)
== END 2022-07-28 08:36 | disposition home or self-care (01) ==
LOC: LAB 08:35
PROVIDERS: ATTEND Internal Medicine
DX: I10 Essential (primary) hypertension (principal); I48.91 Unspecified atrial fibrillation
CPT/HCPCS: 36415; 80048